=== PATIENT | female | born 1955 | race Caucasian/White ===

== ENCOUNTER 2017-07-30 07:30 | Inpatient (IN) | payer OTHER ==
--- NOTE | 2017-07-31 18:56 | HP ---
HISTORY AND PHYSICAL: DATE OF ADMISSION: 08/13/17 She is entering [facility] for a left total knee replacement. CHIEF COMPLAINT: Left knee pain. 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 Now, because she is no longer responsive to nonoperative care, her desire is to proceed with the knee replacement and we have recommended it. Her walking is limited to one quarter mile. She does stairs one at a time for the past year using the railing and the left knee locks occasionally. The knee history started as a young person and there is no specific injury. PAST MEDICAL HISTORY: She has a past history of DVT. No history of heart attack or chest pain. No cancers. No chronic bronchitis or shortness of breath. PAST SURGICAL HISTORY: , she had a urinary tract infection once during her , and she has a hip replacement. CURRENT MEDICATIONS: 1. She keeps an EpiPen for bee stings. 2. Celebrex 100 mg once or twice a day. 3. Valsartan 80 mg each day. 4. Aspirin 81 mg each day. 5. Hydrochlorothiazide 25 mg one tablet each day. 6. Simvastatin 10 mg each day. 7. She takes vitamin B complex, vitamin D3, and vitamin C. ALLERGIES: To CODEINE, DAYPRO, SHRIMP, TUNA, and BEE STINGS. REVIEW OF SYSTEMS: She has sleep apnea, hypercholesterolemia, and hypertension. PHYSICAL EXAMINATION GENERAL: Currently on examination, not acutely distressed. VITAL SIGNS: Height 64 inches, weight 199 pounds, blood pressure 124/78, respirations 16, temperature 97.1. LUNGS: Clear bilaterally. CARDIAC: The heart is regular. S1, S2 normal. No murmurs or gallops. ABDOMEN: Round, soft, nontender. I do not appreciate organomegaly. EXTREMITIES: The walk and gait shows a limp on the left with left knee valgus. The left knee has an effusion with extension to 0, flexion 95 degrees. There is some lateral tenderness. Medial collateral ligament opens slightly and has a firm endpoint. The LCL is stable. Flex and posterior drawer normal. The thigh and calf are soft. The left dorsalis pedis pulse is 2+. Good foot color. She is able to rise on her toes and her heels and do a partial squat. NEUROLOGIC: Cranial nerves are grossly intact. DIAGNOSTIC STUDIES: The knee radiographs shows severe arthritis of the left knee and the lateral compartment with valgus malalignment. IMPRESSION: Severe arthritis of the left knee. PLAN: Left total knee replacement. Risks and complications of surgical repair have been discussed with her. Postoperatively, she will need coverage for her DVT history. [id number]/[facility] #: [id number] HUANG
--- NOTE | 2017-09-03 02:17 | HP ---
HISTORY AND PHYSICAL: DATE OF ADMISSION: 09/10/17 Entering [facility] 09/10/17 for a left total knee replacement. CHIEF COMPLAINT: Left knee pain, deformity. HISTORY OF PRESENT ILLNESS: The patient has had left knee pain for many years with valgus malalignment, now she is no longer responsive for nonoperative care. A left total knee replacement has been recommended. Her walking is limited to one-quarter mile. She does stairs one at a time for the past year using the railing and the left knee locks occasionally. Her left knee arthritis history began as a young person and there was no specific injury. She was scheduled for left total knee replacement in July. She was ill at that time and she is now recovered from a GI illness and is feeling fine. PAST MEDICAL HISTORY: Positive for DVT. No history of heart attack or chest pain. No cancers, no bronchitis or shortness of breath. She does have sleep apnea, hypercholesterolemia, and hypertension. PAST SURGICAL HISTORY: 1. . 2. Urinary tract infection. 3. She had a hip replacement that was done in April of 2004. CURRENT MEDICATIONS: 1. She keeps an EpiPen for bee stings. 2. Celebrex 100 mg, she takes this only rarely. 3. Valsartan 80 mg p.o. each day. 4. Aspirin 81 mg each day. 5. Hydrochlorothiazide 25 mg each day. 6. Simvastatin 10 mg each day. 7. Vitamin B complex, vitamin D3 and vitamin C. ALLERGIES: CODEINE, DAYPRO, SHRIMP, TUNA, and BEE STINGS. PHYSICAL EXAMINATION GENERAL: Well nourished, well developed, not acutely distressed. She has some limp on the left. Left knee has valgus. HEENT: Height 63 inches, weight 199, blood pressure 130/82, the temp is 97.6. Her cranial nerves were grossly intact. The head is NC/AT. LUNGS: Clear bilaterally. HEART: Regular. S1, S2 normal. No murmurs or gallops. ABDOMEN: Round, soft, nontender. I do not appreciate organomegaly. EXTREMITIES: The left knee has extension 0, flexion 108. There is an effusion. The valgus is 15 degrees and the MCL has a firm endpoint and seems to have stability. LCL is stable. Thigh and calf are soft. The dorsalis pedis pulse is 2+ on the left. IMPRESSION: The medical problems are outlined above. Left knee severe arthritis with valgus malalignment. PLAN/RECOMMENDATIONS: Left total knee replacement. Because of the DVT history , we are planning Lovenox 40 mg subcu each day to start postoperative day 1. Risks and complications of surgery and Lovenox were discussed with her today including bleeding complications and her questions were answered. We will proceed with this on 09/10/17. [id number]/[facility] #: [id number] HUANG
[2017-09-09] MEDS ORDERED: Buffered Lidocaine 0.9% SYRIN* 5 ML/SYR SYRINGE INTRADERM ONE (09:41)
[2017-09-10] MEDS ORDERED: Naloxone* 0.4 MG/ML 1 ML VIAL IV PRN (05:36)
[2017-09-10] MEDS ORDERED: DiMENhydriNATE IV* 50 MG/ML VIAL IV PUSH PRN (05:36)
[2017-09-10] MEDS ORDERED: PROCHLORPERAZINE INJ 5 MG/ML 2 ML VIAL IV PRN (05:36)
[2017-09-10] MEDS ORDERED: Morphine INJ* 2 MG/ML 1 ML CARPUJECT IV PRN (05:36)
[2017-09-10] MEDS ORDERED: fentaNYL* 50 MCG/ML 2 ML VIAL (100 MCG VIAL) IV PRN (05:36)
[2017-09-10] MEDS ORDERED: Famotidine IV* 10 MG/ML 2 ML (20 mg) IV ONE (06:00)
[2017-09-10] MEDS ORDERED: Scopolamine 1.5 mg* PATCH TRANSDERM ONE (06:00)
--- OUTSIDE RECORDS SUMMARY | 2017-09-10 06:01 | XMS REPORT ---
:1955 External Reference #:[id number] Author Organization [employer] Address [address] [address] Phone [phone] Care Team Providers Name Role Phone Maura Bernal MD Primary Care Physician Unavailable Payers Type Date Identification Numbers Payment Provider Subscriber Commercial Effective: Policy Number: [id number] A[employer] Consuelo Joe 2012 Group Number: [id number] [id number] PayID: [id number] [place] [address] Medigap Part B Effective: Policy Number: Aetna Insurance Consuelo Joe 2012 [id number] Expires: 2012 Group Number: [id number] [address] PayID: [id number] [place] [address] Medigap Part B Expires: 2012 Policy Number: Cigna [facility] I Reese Joe [id number] PayID: [id number] [address] [place] [address] Medigap Part B Expires: 2012 Policy Number: [employer] Consuelo Joe [id number] Group Number: [id number] [address] PayID: [id number] [place] [address] Problems Date Description Provider Status Onset: 02/23/2011 Benign essential hypertension Tyrell Mccollum M.D. Active Onset: 02/23/2011 Pure hypercholesterolemia Tyrell Mccollum M.D. Active Onset: 05/20/2012 Sleep apnea Tyrell Mccollum M.D. Active Onset: 02/23/2011 Osteoarthritis Tyrell Mccollum M.D. Active Social History Type Date Description Comments Occupation [employer] Cigarette Use Never Smoked Cigarettes ETOH Use 12/04/2012 Occasionally consumes alcohol Smoking Patient has never smoked Exercise Type/Frequency Exercises regularly Allergies, Adverse Reactions, Alerts Date Description Reaction Status Severity Comments 03/25/2007 Codeine active 03/25/2007 Daypro active 03/25/2007 shrimp active Hives 05/20/2012 TUNA mouth itching active 08/01/2016 Bee Sting active Severe Medications Medication Date Status Form Strength Qnty SIG Indications Ordering Provider Lovenox 09/02 Active Solution 40mg/0.4M .400m 40 mg M17.12 Dir L emily Coker each M.D. day for 26 days Epipen 2-Parker 08/01 Active Solution 0.3mg/0.3 2unit use as Auto-Inject ML s directed Varn, N.P. Celebrex 07/17 Active Capsules 100mg 60cap 1 tab by M19.012 s mouth F twice a Margaret, day as MD needed Valsartan 01/07 Active Tablets 80mg 90tab take 1 s tablet Varn, daily N.P. Aspir-[address] 81mg 1 by mouth Unknown /0000 every day Hydrochlorothiazi Active Tablets 25mg 90tab take one Tyrell Ramirez s tablet by jose martin Mccollum.Waylon every day B Complex Active 100mg. Vitamin D3 Active 2000Iu Vitamin C Active Capsules 500mg 1 by mouth Unknown /0000 every day Simvastatin Active Tablets 10mg 30tab take 1 s tablet by Varn mouth at N.P. bedtime Fish Oil Active Capsules 1000mg 1 by mouth Unknown /0000 every day Zostavax 08/01 Hx Solution 22033Kza/ 1unit 1 dose s/c Z00.01 Rec 0.65ML s Varn, - N.P. 09/01 Pantoprazole 05/[address] 40mg 30tab Take 1 530.81 Augie Sodium /2014 s Tablet By BANDAR Woodruff - Mouth 09/13 Every Day Amoxicillin 09/17 Hx Capsules 500mg 20cap 1 cap Antonette s twice a Della, - day for 10 N.P. 05 Fluticasone 09/15 Hx Suspension 50mcg/Act 1bott 2 spray in 465.9 Antonette le each Della, - nostril in N.P. 05 in morning Xarelto 04/28 Hx Tablets 20mg 90tab Take 1 453.40 Tyrell E. s Tablet By Veda, - Mouth One M.D. 12/04 Time Daily With Evening Meal Xarelto 04/06 Hx Tablets 15mg 42tab 1 po bid 453.40 Tyrell E. s for 3 Veda, - weeks M.D. 04/28 Amoxicillin 05/20 Hx Capsules 500mg 30cap 1 tid for 465.9 Tyrell E. s 10 days Iraida Mccollum.Waylon 12/04 Tessalon Perles 05/20 Hx Capsules 100mg 30cap 1-2 po tid 465.9 Tyrell E. s prn Veda - M.Waylon 04/28 Triamcinolone 12/12 Hx Creme 0.1% 1unit apply to 692.6 Amalia s christine Mesa, - affected M.D. 05/20 areas Twice a day X 10 days Hydrocortisone 02/09 Hx Ointment 2.5% 20gm bid 692.70 Manolo sparingly Waylon Mahajan, - to the M.D.,FACP 11/08 affected area Terbinafine HCL 02/09 Hx Cream 1% 15gm apply 110.2 Manolo sparingly Waylon Mahajan, - to skin M.D.,FACP 11/08 bid x weeks Diovan 09/29 Hx Tablets 80mg 90tab Take 1 Tyrell E. s Tablet Veda, - Daily M.D. 09/13 Simvastatin 10/04 Hx Tablets 20mg 90tab take one Tyrell E. s tablet by Veda, - mouth at M.D. 03/24 bedtime Amoxicillin 12/31 Hx Tablets 500mg 30tab 1 po tid Tyrell E. s for 10 Veda, - days Demi 05/06 Zocor 12/31 Hx Tablets 20mg 90tab 1 po qhs Tyrell E. s Iraida Mccollum M.D. 10/04 Effexor 10/21 Hx Tablets 37.5mg 1 PO qod Tyrell E. Iraida Mccollum M.D. 12/31 Amoxicillin 07/02 Hx Tablets 500mg 21tab 1 po tid Tyrell E. s for 10 Veda, - monserrat Simms 10/21 Tessalon Perles 07/02 Hx Capsules 100mg 30cap 1-2 po tid Tyrell E. s prn Iraida Mccollum M.D. 10/21 Effexor XR 03/25 Hx Caps ER 37.5mg 30cap 1 po qd Tyrell EMara 24HR Iraida Ferrell M.D. 05/21 Lipitor 03/25 Hx Tablets 10mg 30tab 1tab po hs Tyrell E. Iraida Ferrell M.D. 05/21 Diovan Hx Tablets 80mg 4tabs 1 po qd Tyrell E. / Iraida Mccollum M.D. 09/29 Lipitor Hx Tablets 10mg 90tab 1 po qhs Tyrell E. / Iraida Ferrell M.D. 12/31 Effexor XR Hx Caps ER 37.5mg 90cap 1 po qd Tyrell E. / 24HR Iraida Ferrell M.D. 10/21 Fish Oil Triple Hx Capsules 900mg 1 po qd Unknown Strength /0000 - 05/20 Aspirin Low Hx Chewtabs 81mg 1 po qd Unknown Strength /0000 - 05/20 Caltrate Gummy Hx Chewtabs 250-400mg 2 daily Unknown Bites /0000 -Unit - 05/20 Warfarin Sodium Hx Tablets 5mg 90tab take as Unknown /0000 s directed - 04/28 Lovenox Hx Solution 100mg/ml 8unit 1 Unknown /0000 s subcutaneo - usly q12h 04/28 directed Caltrate 600+D Hx Chewtabs 600-400mg 1 po bid Unknown /0000 -Unit - 10/22 Stephanie Hx Capsules 500mg Unknown /0000 - 08/29 Vitamin D3 Hx Capsules 1000Unit 90cap 1 po qd Unknown /0000 s - 05/19 Viactiv Hx Chewtabs 500-500-4 60uni 1 by mouth Unknown /0000 0mg-Unt-m ts twice a - cg day 08/29 Valacyclovir HCL Hx 1 po tid Unknown /0000 - 01/28 Prednisone Hx Tablets 20mg 20tab take 3 po Unknown / s qam - 10/24 Neomycin/Polymyxi Hx Solution [id number] 1vial 2 drops Unknown n/Hydrocortisone /0000 -1 left ear - 4x per day 11/27 7-10 Fish Oil Hx Capsules 1000mg 1 by mouth Unknown Burp-Less /0000 every day - 08/29 Caltrate +D Hx Unknown /0000 - 03/24 Fish Oil Hx Capsules Unknown Burp-Less /0000 - 02/28 Immunizations CPT Code Status Date Vaccine Lot # [id number] Given 07/21/2017 Influenza Virus Vaccine, Quadrivalent, Split, Preservative Free [id number] Given 05/19/2014 Flu Vaccine Split Virus Preservative Free For [id number] Indiv 3Yr Older 32975 Given 04/28/2013 Flu Vaccine Split Virus Preservative Free For [id number] Indiv 3Yr Older [id number] Given 05/20/2012 Fluvirin Im 3Yrs And Older [id number] 72617 Given 01/17/2009 Tdap - Tetanus/Diptheria/Acellular Pertussis [id number] Given 12/13/1998 Td (History By Patient) Vital Signs Date Vital Result Comment 09/02/2017 Height 63.5 inches 5'3.50" Weight 199.00 lb BP Systolic 130 mmHg BP Diastolic 82 mmHg Respiratory Rate 18 /min Body Temperature 97.6 F Pain Level 0 BMI (Body Mass Index) 34.7 kg/m2 07/31/2017 Height 63.5 inches 5'3.50" Weight 199.00 lb BP Systolic 124 mmHg BP Diastolic 78 mmHg Respiratory Rate 16 /min Body Temperature 97.1 F Pain Level 0 BMI (Body Mass Index) 34.7 kg/m2 07/29/2017 Weight 199.25 lb Heart Rate 79 /min BP Systolic Sitting 128 mmHg BP Diastolic Sitting 78 mmHg Body Temperature 97.5 F O2 % BldC Oximetry 97 % 03/25/2017 Height 63.5 inches 5'3.50" Weight 199.00 lb BP Systolic 128 mmHg BP Diastolic 72 mmHg Respiratory Rate 18 /min Body Temperature 97.8 F Pain Level 0 BMI (Body Mass Index) 34.7 kg/m2 02/28/2017 Weight 203.50 lb Heart Rate 77 /min BP Systolic 112 mmHg BP Diastolic 70 mmHg Body Temperature 97.9 F O2 % BldC Oximetry 96 % 09/11/2016 Height 63.5 inches 5'3.50" Weight 207.00 lb Heart Rate 76 /min BP Systolic 139 mmHg BP Diastolic 81 mmHg Respiratory Rate 16 /min Pain Level 3 BMI (Body Mass Index) 36.1 kg/m2 08/01/2016 Height 63 inches 5'3" Weight 211.00 lb Heart Rate 82 /min BP Systolic Sitting 124 mmHg BP Diastolic Sitting 82 mmHg Body Temperature 97.4 F O2 % BldC Oximetry 96 % BMI (Body Mass Index) 37.4 kg/m2 07/17/2016 Height 63.5 inches 5'3.50" Weight 207.00 lb Heart Rate 80 /min BP Systolic 120 mmHg BP Diastolic 80 mmHg Pain Level 0 8 BMI (Body Mass Index) 36.1 kg/m2 02/29/2016 Height 63.5 inches 5'3.50" Weight 212.00 lb Heart Rate 86 /min BP Systolic 160 mmHg BP Diastolic 90 mmHg Body Temperature 98.6 F O2 % BldC Oximetry 97 % BMI (Body Mass Index) 37.0 kg/m2 08/31/2015 Height 63.5 inches 5'3.50" Weight 199.00 lb Heart Rate 81 /min BP Systolic 131 mmHg BP Diastolic 71 mmHg BMI (Body Mass Index) 34.7 kg/m2 11/24/2014 Height 63.5 inches 5'3.50" Heart Rate 75 /min BP Systolic Sitting 122 mmHg BP Diastolic Sitting 72 mmHg Pain Level 1 O2 % BldC Oximetry 98 % 09/13/2014 Height 63.5 inches 5'3.50" Heart Rate 78 /min BP Systolic Sitting 122 mmHg BP Diastolic Sitting 68 mmHg 05/19/2014 Weight 207.00 lb per pt Heart Rate 83 /min BP Systolic Sitting 133 mmHg BP Diastolic Sitting 78 mmHg Body Temperature 97.2 F O2 % BldC Oximetry 95 % 10/22/2013 Weight 207.00 lb Heart Rate 82 /min BP Systolic Sitting 116 mmHg BP Diastolic Sitting 80 mmHg Body Temperature 97.4 F 09/15/2013 Weight 209.00 lb Heart Rate 90 /min BP Systolic Sitting 134 mmHg BP Diastolic Sitting 70 mmHg Body Temperature 97.7 F 08/19/2013 Height 63.5 inches 5'3.50" Weight 205.00 lb Heart Rate 90 /min BP Systolic Sitting 130 mmHg BP Diastolic Sitting 82 mmHg BMI (Body Mass Index) 35.7 kg/m2 04/28/2013 Height 63.5 inches 5'3.50" Weight 203.50 lb Heart Rate 92 /min BP Systolic Sitting 126 mmHg BP Diastolic Sitting 74 mmHg BMI (Body Mass Index) 35.5 kg/m2 04/06/2013 Weight 205.00 lb Heart Rate 94 /min BP Systolic Sitting 130 mmHg BP Diastolic Sitting 74 mmHg 12/04/2012 Weight 200.00 lb Heart Rate 76 /min BP Systolic Sitting 134 mmHg BP Diastolic Sitting 76 mmHg 05/20/2012 Height 63.5 inches 5'3.50" Weight 203.00 lb Heart Rate 78 /min BP Systolic Sitting 118 mmHg BP Diastolic Sitting 76 mmHg Body Temperature 97.8 F BMI (Body Mass Index) 35.4 kg/m2 12/13/2011 Height 63.5 inches 5'3.50" Weight 204.00 lb Heart Rate 76 /min BP Systolic Sitting 120 mmHg BP Diastolic Sitting 80 mmHg BMI (Body Mass Index) 35.6 kg/m2 11/09/2011 Height 63.5 inches 5'3.50" Weight 201.75 lb Heart Rate 88 /min BP Systolic Sitting 120 mmHg BP Diastolic Sitting 88 mmHg BMI (Body Mass Index) 35.2 kg/m2 09/24/2011 Height 64 inches 5'4" Heart Rate 88 /min BP Systolic Sitting 150 mmHg BP Diastolic Sitting 94 mmHg 02/23/2011 Height 64 inches 5'4" Weight 195.00 lb Heart Rate 72 /min BP Systolic Sitting 122 mmHg L BP Diastolic Sitting 84 mmHg L BMI (Body Mass Index) 33.5 kg/m2 02/09/2011 Weight 197.00 lb Heart Rate 66 /min BP Systolic Sitting 110 mmHg BP Diastolic Sitting 76 mmHg 10/03/2009 Weight 209.00 lb Heart Rate 80 /min BP Systolic 130 mmHg BP Diastolic 78 mmHg 01/17/2009 Heart Rate 76 /min BP Systolic Sitting 120 mmHg BP Diastolic Sitting 80 mmHg 10/04/2008 Height 64 inches 5'4" Heart Rate 84 /min BP Systolic Sitting 122 mmHg BP Diastolic Sitting 86 mmHg 05/06/2008 Height 64 inches 5'4" Weight 202.00 lb Heart Rate 76 /min BP Systolic Sitting 150 mmHg BP Diastolic Sitting 96 mmHg BMI (Body Mass Index) 34.7 kg/m2 01/01/2008 Height 64 inches 5'4" Heart Rate 76 /min BP Systolic Sitting 110 mmHg BP Diastolic Sitting 72 mmHg 10/22/2007 Height 64 inches 5'4" Weight 202.00 lb Heart Rate 80 /min BP Systolic Sitting 120 mmHg BP Diastolic Sitting 70 mmHg BMI (Body Mass Index) 34.7 kg/m2 07/02/2007 Height 64 inches 5'4" BP Systolic Sitting 120 mmHg BP Diastolic Sitting 80 mmHg Body Temperature 99.3 F 03/25/2007 Height 64 inches 5'4" Weight 199.00 lb Heart Rate 68 /min BP Systolic Sitting 120 mmHg BP Diastolic Sitting 80 mmHg BMI (Body Mass Index) 34.2 kg/m2 Results Test Date Test Result H/L Range Note Type & Screen 07/31/2017 Patient Blood Type B Positive 1 Antibody Screen NEGATIVE 1 CBC Auto Diff 07/20/2017 White Blood Count 6.3 10^3/uL 3.5-10.8 Red Blood Count 4.79 10^6/uL 4.0-5.4 Hemoglobin 14.5 g/dL 12.0-16.0 Hematocrit 43 % 35-47 Mean Corpuscular Volume 90 fL 80-97 Mean Corpuscular Hemoglobin 30 pg 27-31 Mean Corpuscular HGB Conc 34 g/dL 31-36 Red Cell Distribution Width 14 % 10.5-15 Platelet Count 284 10^3/uL 150-450 Mean Platelet Volume 9 um3 7.4-10.4 Abs Neutrophils 3.8 10^3/uL 1.5-7.7 Abs Lymphocytes 1.8 10^3/uL 1.0-4.8 Abs Monocytes 0.5 10^3/uL 0-0.8 Abs Eosinophils 0.1 10^3/uL 0-0.6 Abs Basophils 0.1 10^3/uL 0-0.2 Abs Nucleated RBC 0 10^3/uL Granulocyte % 59.7 % 38-83 Lymphocyte % 28.8 % 25-47 Monocyte % 8.5 % 1-9 Eosinophil % 2.1 % 0-6 Basophil % 0.9 % 0-2 Nucleated Red Blood Cells % 0.1 Comp Metabolic Panel 07/20/2017 Sodium 140 mmol/L 133-145 Potassium 3.9 mmol/L 3.5-5.0 Chloride 101 mmol/L 101-111 Co2 Carbon Dioxide 32 mmol/L 22-32 Anion Gap 7 mmol/L 2-11 Glucose 93 mg/dL 70-100 Blood Urea Nitrogen 14 mg/dL 6-24 Creatinine 0.64 mg/dL 0.51-0.95 BUN/Creatinine Ratio 21.9 High 8-20 Calcium 9.8 mg/dL 8.6-10.3 Total Protein 7.3 g/dL 6.4-8.9 Albumin 4.2 g/dL 3.2-5.2 Globulin 3.1 g/dL 2-4 Albumin/Globulin Ratio 1.4 1-3 Total Bilirubin 0.80 mg/dL 0.2-1.0 Alkaline Phosphatase 73 U/L 34-104 Alt 20 U/L 7-52 Ast 18 U/L 13-39 Egfr Non- 94.0 >60 Egfr 120.9 >60 2 Inr/Protime 07/20/2017 Inr 0.94 0.77-1.02 Laboratory test finding 07/20/2017 Partial Thrombo Time 29.1 seconds 26.0 -36.3 3 PTT Urinalysis Profile 07/20/2017 Urine Color Yellow Urine Appearance Cloudy Urine Specific Energy 1.019 1.010-1.030 Urine pH 6.0 5-9 Urine Urobilinogen Negative Negative Urine Ketones Negative Negative Urine Protein Negative Negative Urine Leukocytes 1+ Negative Urine Blood Negative Negative * * Negative 4 Urine Nitrite Negative Negative Urine Bilirubin Negative Negative Urine Glucose Negative Negative Urine White Blood Cell Trace(0-5/hpf) Absent Urine Red Blood Cell Absent Absent Urine Bacteria 1+ Absent Urine Squamous Epithelial Cell Present Absent Urine Culture And Sensitivities 07/20/2017 Urine Culture SEE RESULT BELOW 5 Lipid Profile (Trig/Chol/HDL) 04/08/2017 Triglycerides 83 mg/dL 6 Cholesterol 136 mg/dL 7 HDL Cholesterol 50.6 mg/dL 8 LDL Cholesterol 69 mg/dL 9 Laboratory test 12/04/2016 Surgical Interface Order SEE RESULT BELOW 10 , 11 finding Lipid Profile 11/26/2016 Triglycerides 98 mg/dL 12 (Trig/Chol/HDL) Cholesterol 143 mg/dL 13 HDL Cholesterol 51.2 mg/dL 14 LDL Cholesterol 72 mg/dL 15 Laboratory test finding 11/26/2016 Vitamin D Total 25(Oh) 31.0 ng/mL 30- 50 Comp Metabolic Panel 05/16/2016 Sodium 139 mmol/L 133-145 Potassium 4.0 mmol/L 3.5-5.0 Chloride 102 mmol/L 101-111 Co2 Carbon Dioxide 31 mmol/L 22-32 Anion Gap 6 mmol/L 2-11 Glucose 88 mg/dL 70-100 Blood Urea Nitrogen 14 mg/dL 6-24 Creatinine 0.71 mg/dL 0.51-0.95 BUN/Creatinine Ratio 19.7 8-20 Calcium 9.7 mg/dL 8.6-10.3 Total Protein 7.4 g/dL 6.4-8.9 Albumin 4.1 g/dL 3.2-5.2 Globulin 3.3 g/dL 2-4 Albumin/Globulin Ratio 1.2 1-3 Total Bilirubin 0.80 mg/dL 0.2-1.0 Alkaline Phosphatase 71 U/L 34-104 Alt 29 U/L 7-52 Ast 24 U/L 13-39 Egfr Non- 83.7 >60 Egfr 107.6 >60 16 Lipid Profile (Trig/Chol/HDL) 05/16/2016 Triglycerides 89 mg/dL 17 Cholesterol 116 mg/dL 18 HDL Cholesterol 46.3 mg/dL 19 LDL Cholesterol 52 mg/dL 20 Laboratory test finding 05/16/2016 TSH (Thyroid Stim 1.26 mcIU/mL 0.34- 5.60 21 Horm) CBC Auto Diff 05/16/2016 White Blood Count 6.9 10^3/uL 3.5-10.8 Red Blood Count 4.91 10^6/uL 4.0-5.4 Hemoglobin 14.8 g/dL 12.0-16.0 Hematocrit 44 % 35-47 Mean Corpuscular Volume 89 fL 80-97 Mean Corpuscular Hemoglobin 30 pg 27-31 Mean Corpuscular HGB Conc 34 g/dL 31-36 Red Cell Distribution Width 13 % 10.5-15 Platelet Count 276 10^3/uL 150-450 Mean Platelet Volume 9 um3 7.4-10.4 Abs Neutrophils 3.9 10^3/uL 1.5-7.7 Abs Lymphocytes 2.2 10^3/uL 1.0-4.8 Abs Monocytes 0.6 10^3/uL 0-0.8 Abs Eosinophils 0.1 10^3/uL 0-0.6 Abs Basophils 0 10^3/uL 0-0.2 Abs Nucleated RBC 0.01 10^3/uL Granulocyte % 56.6 % 38-83 Lymphocyte % 32.2 % 25-47 Monocyte % 8.4 % 1-9 Eosinophil % 2.1 % 0-6 Basophil % 0.7 % 0-2 Nucleated Red Blood Cells % 0.1 Laboratory test 12/11/2013 D Dimer Quantitative < 200 ng/mL Less Than 230 22 finding Comp Metabolic Panel 10/19/2013 Sodium 137 mmol/L 133-145 Potassium 3.2 mmol/L Low 3.7-5.6 Chloride 97 mmol/L Low 101-111 Co2 Carbon Dioxide 32 mmol/L 22-32 Anion Gap 8 mmol/L 2-11 Glucose 102 mg/dL High 70-100 Blood Urea Nitrogen 9 mg/dL 6-24 Creatinine 0.69 mg/dL 0.51-0.95 BUN/Creatinine Ratio 13.0 8-20 Calcium 10.1 mg/dL 8.6-10.3 Total Protein 8.2 g/dL 6.4-8.9 Albumin 4.8 g/dL 3.2-5.2 Globulin 3.4 g/dL 2-4 Albumin/Globulin Ratio 1.4 1-3 Total Bilirubin 1.30 mg/dL High 0.2-1.0 Alkaline Phosphatase 79 U/L 34-104 Alt 23 U/L 7-52 Ast 22 U/L 13-39 Egfr Non- 87.4 >60 Egfr 112.4 >60 23 Laboratory test finding 10/19/2013 TSH (Thyroid Stimulating 2.18 IU/mL 0.34-5.60 Horm) C Reactive Protein 5.19 mg/L High < 5.00 24 CBC Auto Diff 10/19/2013 White Blood Count 8.7 10^3/uL 4.8-10.8 Red Blood Count 5.03 10^6/uL 4.0-5.4 Hemoglobin 15.1 g/dL 12.0-16.0 Hematocrit 45 % 35-47 Mean Corpuscular Volume 89 fL 80-97 Mean Corpuscular Hemoglobin 30 pg 27-31 Mean Corpuscular HGB Conc 34 g/dL 31-36 Red Cell Distribution Width 13 % 10.5-15 Platelet Count 290 10^3/uL 150-450 Mean Platelet Volume 9 um3 7.4-10.4 Abs Neutrophils 6.4 10^3/uL 1.5-7.7 Abs Lymphocytes 1.8 10^3/uL 1.0-4.8 Abs Monocytes 0.5 10^3/uL 0-0.8 Abs Eosinophils 0 10^3/uL 0-0.6 Abs Basophils 0 10^3/uL 0-0.2 Abs Nucleated RBC 0 10^3/uL Granulocyte % 73.2 % 38-83 Lymphocyte % 20.4 % Low 25-47 Monocyte % 5.4 % 1-9 Eosinophil % 0.4 % 0-6 Basophil % 0.6 % 0-2 Nucleated Red Blood Cells % 0 Inr/Protime 10/19/2013 Inr 1.21 High 0.85-1.06 Laboratory test finding 10/19/2013 Activated Partial 32.9 seconds 24.0- 36.1 Thrombo Time Lyme Disease Serology Negative Negative 25 Lipid Profile (Trig/Chol/HDL) 07/06/2013 Triglycerides 57 mg/dL 40-200 Cholesterol 134 mg/dL Less than 200 HDL Cholesterol 51 mg/dL 40-60 26 Cholesterol/HDL Ratio 2.6 Average 1-4.44 LDL Cholesterol 71.6 Less Than 100 27 Comp Metabolic Panel 07/06/2013 Sodium 137 mmol/L 133-145 Potassium 3.5 mmol/L 3.5-5.0 Chloride 101 mmol/L 101-111 Co2 Carbon Dioxide 29.0 mmol/L 22-32 Anion Gap 7.0 mmol/L 2-11 Glucose 97 mg/dL 70-100 Blood Urea Nitrogen 14 mg/dL 6-24 Creatinine 0.70 mg/dL 0.50-1.40 BUN/Creatinine Ratio 20.0 8-20 Calcium 9.2 mg/dL 8.1-9.9 Total Protein 7.0 g/dL 6.2-8.1 Albumin 3.9 g/dL 3.6-5.4 Globulin 3.1 g/dL 2-4 Albumin/Globulin Ratio 1.3 1-3 Total Bilirubin 0.7 mg/dL 0.4-1.5 Alkaline Phosphatase 66 U/L 30-110 Alt 22 U/L 14-54 Ast 18 U/L 12-42 Egfr Non- 85.9 >60 Egfr 110.5 >60 28 Laboratory test finding 04/06/2013 Inr 0.90 0.87-0.97 Lipid Profile (Trig/Chol/HDL) 05/30/2012 Triglycerides 64 mg/dL 40-200 Cholesterol 145 mg/dL Less than 200 HDL Cholesterol 44 mg/dL 40-60 29 Cholesterol/HDL Ratio 3.3 Average 1-4.44 LDL Cholesterol 88.2 mg/dL Less Than 100 30 Comp Metabolic Panel 05/30/2012 Sodium 142 mmol/L 133-145 Potassium 3.7 mmol/L 3.5-5.0 Chloride 105 mmol/L 101-111 Co2 Carbon Dioxide 29.0 mmol/L 22-32 Anion Gap 8.0 mmol/L 2-11 Glucose 101 mg/dL High 70-100 Blood Urea Nitrogen 13 mg/dL 6-24 Creatinine 0.70 mg/dL 0.50-1.40 BUN/Creatinine Ratio 18.6 8-20 Calcium 9.2 mg/dL 8.1-9.9 Total Protein 6.5 g/dL 6.2-8.1 Albumin 3.9 g/dL 3.6-5.4 Globulin 2.6 g/dL 2-4 Albumin/Globulin Ratio 1.5 1-3 Total Bilirubin 0.8 mg/dL 0.4-1.5 Alkaline Phosphatase 72 U/L 30-110 Alt 25 U/L 14-54 Ast 22 U/L 12-42 Egfr Non- 86.2 >60 Egfr 110.9 >60 31 CBC Auto Diff 05/30/2012 White Blood Count 6.0 10^3/uL 4.8-10.8 Red Blood Count 4.51 10^6/uL 4.0-5.4 Hemoglobin 13.9 g/dL 12.0-16.0 Hematocrit 41 % 35-47 Mean Corpuscular Volume 91 fL 80-97 Mean Corpuscular Hemoglobin 31 pg 27-31 Mean Corpuscular HGB Conc 34 g/dL 31-36 Red Cell Distribution Width 13 % 10.5-15 Platelet Count 290 10^3/uL 150-450 Mean Platelet Volume 9 um3 7.4-10.4 Abs Neutrophils 3.6 10^3/uL 1.5-7.7 Abs Lymphocytes 1.8 10^3/uL 1.0-4.8 Abs Monocytes 0.4 10^3/uL 0-0.8 Abs Eosinophils 0.2 10^3/uL 0-0.6 Abs Basophils 0.1 10^3/uL 0-0.2 Abs Nucleated RBC 0 10^3/uL Granulocyte % 60.2 % 38-83 Lymphocyte % 29.2 % 25-47 Monocyte % 6.3 % 1-9 Eosinophil % 3.1 % 0-6 Basophil % 1.2 % 0-2 Nucleated Red Blood Cells % 0 Comp Metabolic Panel 02/16/2011 Sodium 140 mmol/L 135-145 Potassium 3.8 mmol/L 3.5-5.0 Chloride 104 mmol/L 101-111 Co2 (Carbon Dioxide) 30.0 mmol/L 22-32 Anion Gap 6.0 mmol/L 2-11 32 Glucose 100 mg/dL 70-100 BUN 9 mg/dL 6-24 Creatinine 0.7 mg/dL 0.50-1.40 One Over Creatinine 1.42 BUN/Creatinine Ratio 12.9 8-20 Calcium 9.3 mg/dL 8.1-9.9 Total Protein 6.7 GM/DL 6.2-8.1 Albumin 3.8 GM/DL 3.6-5.4 Globulin 2.9 GM/DL 2-4 Albumin/Globulin Ratio 1.3 1-3 Bilirubin Total 0.9 mg/dL 0.4-1.5 33 Alkaline Phosphatase 64 U/L 30-110 Alt (SGPT) 27 U/L 14-54 Ast (Sgot) 24 U/L 12-42 eGFR Non- 86.9 > 60 eGFR 111.7 > 60 34 Lipid Profile (Trig/Chol/HDL) 02/16/2011 Triglyceride 77 mg/dL 40-200 Cholesterol 137 mg/dL Less Than 200 35 High Density Lipoprotein 45 mg/dL 40-60 36 Cholesterol/HDL Ratio 3.04 AVERAGE 1-4.44 Low Density Lipoprotein 77 mg/dL Less Than 100 37 CBC Auto Diff 02/16/2011 White Blood Count 6.3 CUMM 4.8-10.8 Red Cell Count 4.55 CUMM 4.2-5.4 Hemoglobin 14.3 g/dL 12.0-16.0 Hematocrit 40 % 35-47 Mean Corpuscular Volume 89 um3 79-97 Mean Corpuscular Hemoglob 32 pg High 27-31 Mean Corpuscular HGB Cone 36 g/dL 32-36 Redcell Distribution WDTH 13 % 10.5-15 Platelet Count 277 CUMM 150-450 Mean Platelet Volume 8.2 um3 7.4-10.4 Gran % 55.1 % 38-83 Lymph % 34.3 % 25-47 Mononuclear % 7.4 % 1-9 Eosinophil % 2.3 % 0-6 Basophil % 0.9 % 0-2 Abs Lymphs 2.1 1.0-4.8 Abs Mononuclear 0.5 0-0.8 Absolute Neutrophil Count 3.4 1.5-7.7 Abs Eosinophils 0.1 0-0.6 Abs Basophils 0.1 0-0.2 DR Mccollum's Lab Panel 02/16/2011 TSH 2.42 MIU/ML 0.34-5.60 CBC With Electronic Diff 02/16/2010 White Blood Count 6.7 CUMM 4.8-10.8 Red Cell Count 4.88 CUMM 4.2-5.4 Hemoglobin 15.4 g/dL 12.0-16.0 Hematocrit 44 % 35-47 Mean Corpuscular Volume 90 um3 79-97 Mean Corpuscular Hemoglob 32 pg High 27-31 Mean Corpuscular HGB Cone 35 g/dL 32-36 Redcell Distribution WDTH 13 % 10.5-15 Platelet Count 335 CUMM 150-450 Mean Platelet Volume 7.4 um3 7.4-10.4 Gran % 55.2 % 38-83 Lymph % 34.5 % 25-47 Mononuclear % 7.0 % 1-9 Eosinophil % 2.2 % 0-6 Basophil % 1.1 % 0-2 Abs Lymphs 2.3 1.0-4.8 Abs Mononuclear 0.5 0-0.8 Absolute Neutrophil Count 3.7 1.5-7.7 Abs Eosinophils 0.1 0-0.6 Abs Basophils 0.1 0-0.2 Comp Metabolic Panel 02/16/2010 Sodium 140 mmol/L 135-145 Potassium 4.0 mmol/L 3.5-5.0 Chloride 102 mmol/L 101-111 Co2 (Carbon Dioxide) 33.0 mmol/L High 22-32 Anion Gap 5.0 mmol/L 2-11 38 Glucose 96 mg/dL 70-100 39 BUN 10 mg/dL 6-24 Creatinine 0.80 mg/dL 0.50-1.40 One Over Creatinine 1.20 BUN/Creatinine Ratio 12.5 8-20 Calcium 9.4 mg/dL 8.1-9.9 40 Total Protein 7.1 GM/DL 6.2-8.1 Albumin 4.2 GM/DL 3.6-5.4 Globulin 2.9 GM/DL 2-4 Albumin/Globulin Ratio 1.4 1-3 Bilirubin Total 0.9 mg/dL 0.4-1.5 41 Alkaline Phosphatase 68 U/L 30-110 eGFR Non- 79.4 > 60 eGFR 96.1 > 60 42 Lipid Profile (Trig/Chol/HDL) 02/16/2010 Triglyceride 104 mg/dL 40-200 Cholesterol 136 mg/dL Less Than 200 43 High Density Lipoprotein 37 mg/dL Low 40-60 44 Cholesterol/HDL Ratio 3.68 AVERAGE 1-4.44 Low Density Lipoprotein 78 mg/dL Less Than 100 45 Laboratory test finding 02/16/2010 TSH 1.37 MIU/ML 0.34-5.60 Alt (SGPT) 29 U/L 14-54 Ast (Sgot) 23 U/L 12-42 CBC With Electronic Diff 01/13/2009 White Blood Count 6.4 CUMM 4.8-10.8 46 Red Cell Count 4.66 CUMM 4.2-5.4 46 Hemoglobin 14.3 g/dL 12.0-16.0 46 Hematocrit 43 % 35-47 46 Mean Corpuscular Volume 91 um3 79-97 46 Mean Corpuscular Hemoglob 31 pg 27-31 46 Mean Corpuscular HGB Cone 34 g/dL 32-36 46 Redcell Distribution WDTH 13 % 10.5-15 46 Platelet Count 310 CUMM 150-450 46 Mean Platelet Volume 8.7 um3 7.4-10.4 46 Gran % 62.4 % 38-83 46 Lymph % 27.8 % 25-47 46 Mononuclear % 7.0 % 1-9 46 Eosinophil % 2.2 % 0-6 46 Basophil % 0.6 % 0-2 46 Abs Lymphs 1.8 1.0-4.8 46 Abs Mononuclear 0.4 0-0.8 46 Absolute Neutrophil Count 4.0 1.5-7.7 46 Abs Eosinophils 0.1 0-0.6 46 Abs Basophils 0 0-0.2 46 Comp Metabolic Panel 01/13/2009 Sodium 137 mmol/L 135-145 46 Potassium 4.1 mmol/L 3.5-5.0 46 Chloride 101 mmol/L 101-111 46 Co2 (Carbon Dioxide) 29.0 mmol/L 22-32 46 Anion Gap 7.0 mmol/L 2-11 46, 47 Glucose 92 mg/dL 70-100 46, 48 BUN 10 mg/dL 6-24 46 Creatinine 0.70 mg/dL 0.50-1.40 46 One Over Creatinine 1.40 46 BUN/Creatinine Ratio 14.3 8-20 46 Calcium 9.4 mg/dL 8.1-9.9 46, 49 Total Protein 6.9 GM/DL 6.2-8.1 46 Albumin 3.8 GM/DL 3.6-5.4 46 Globulin 3.1 GM/DL 2-4 46 Albumin/Globulin Ratio 1.2 1-3 46 Bilirubin Total 1.0 mg/dL 0.4-1.5 46, 50 Alkaline Phosphatase 65 U/L 30-110 46 Alt (SGPT) 19 U/L 14-54 46 Ast (Sgot) 18 U/L 12-42 46 eGFR Non- 93.0 > 60 46 eGFR 112.6 > 60 46, 51 Lipid Profile (Trig/Chol/HDL) 01/13/2009 Triglyceride 86 mg/dL 40-200 46 Cholesterol 170 mg/dL Less Than 200 46, 52 High Density Lipoprotein 40 mg/dL 40-60 46, 53 Low Density Lipoprotein 113 mg/dL High Less Than 100 46, 54 Cholesterol/HDL Ratio 4.25 AVERAGE 1-4.44 46 Laboratory test finding 01/13/2009 TSH 0.79 MIU/ML 0.34-5.60 46 Lipid Profile (Trig/Chol/HDL) 04/27/2008 Triglyceride 87 mg/dL 40-200 55 Cholesterol 160 mg/dL Less Than 200 55, 56 High Density Lipoprotein 42 mg/dL 40-60 55, 57 Cholesterol/HDL Ratio 3.81 AVERAGE 1-4.44 55 Low Density Lipoprotein 101 mg/dL High Less Than 100 55, 58 Laboratory test finding 04/27/2008 Alt (SGPT) 28 U/L 14-54 55 Ast (Sgot) 23 U/L 12- 55 Laboratory test finding 10/22/2007 TSH 0.96 MIU/ML 0.34-5.60 59 Comp Metabolic Panel 10/22/2007 One Over Creatinine 1.11 59 Anion Gap 5.0 mmol/L 2-11 59, 60 Albumin/Globulin Ratio 1.1 1-3 59 Albumin 3.8 GM/DL 3.6-5.4 59 Alkaline Phosphatase 63 U/L 30-110 59 Alt (SGPT) 24 U/L 14-54 59 Ast (Sgot) 24 U/L 12-42 59 BUN 15 mg/dL 6-24 59 Calcium 9.4 mg/dL 8.7-10.2 59 Chloride 102 mmol/L 101-111 59 Co2 (Carbon Dioxide) 32.0 mmol/L 22-32 59 Globulin 3.6 GM/DL 2-4 59 Glucose 93 mg/dL 70-105 59 Potassium 3.3 mmol/L Low 3.5-5.0 59 Sodium 139 mmol/L 135-145 59 Bilirubin Total 1.1 mg/dL 0.4-1.5 59 Total Protein 7.4 GM/DL 6.2-8.1 59 BUN/Creatinine Ratio 16.7 8-20 59 Creatinine 0.9 mg/dL 0.5-1.4 59 Laboratory test finding 10/22/2007 CPK (Creatine Kinase) 132 U/L 0-170 59 Lipid Profile 05/21/2007 Cholesterol/HDL Ratio 3.41 AVERAGE 1-4.44 61 (Trig/Chol/HDL) Cholesterol 140 mg/dL Less Than 200 61, 62 Triglyceride 75 mg/dL 40-200 61 High Density Lipoprotein 41 mg/dL 40-60 61 Low Density Lipoprotein 84 mg/dL Less Than 100 61, 63 Laboratory test finding 05/21/2007 Alt (SGPT) 25 U/L 14-54 61 Ast (Sgot) 22 U/L 12- 61 Laboratory test finding 01/02/2007 TSH 1.05 MIU/ML 0.34-5.60 61 Lipid Profile 01/02/2007 Cholesterol/HDL 4.88 AVERAGE High 1-4.44 61 (Trig/Chol/HDL) Ratio Cholesterol 195 mg/dL Less Than 200 61, 64 Triglyceride 69 mg/dL 40-200 61 High Density Lipoprotein 40 mg/dL 40-60 61 Low Density Lipoprotein 141 mg/dL High Less Than 100 61, 65 Comp Metabolic Panel 01/02/2007 One Over Creatinine 1.25 61 Anion Gap 9.0 mmol/L 2-11 61, 66 Albumin/Globulin Ratio 1.3 1-3 61 Albumin 3.5 GM/DL Low 3.6-5.4 61 Alkaline Phosphatase 59 U/L 30-110 61 Alt (SGPT) 20 U/L 14-54 61 Ast (Sgot) 21 U/L 12-42 61 BUN 8 mg/dL 6-24 61 Calcium 8.4 mg/dL Low 8.7-10.2 61 Chloride 106 mmol/L 101-111 61 Co2 (Carbon Dioxide) 25.0 mmol/L 22-32 61 Globulin 2.8 GM/DL 2-4 61 Glucose 99 mg/dL 70-105 61 Potassium 3.8 mmol/L 3.5-5.0 61 Sodium 140 mmol/L 135-145 61 Bilirubin Total 1.1 mg/dL 0.4-1.5 61 Total Protein 6.3 GM/DL 6.2-8.1 61 BUN/Creatinine Ratio 10.0 8-20 61 Creatinine 0.8 mg/dL 0.5-1.4 61 CBC W/ Electronic Diff 01/02/2007 White Blood Count 6.9 CUMM 4.8-10.8 61 Abs Basophils 0 0-0.2 61 Abs Eosinophils 0.2 0-0.6 61 Absolute Neutrophil Count 4.6 1.5-7.7 61 Abs Lymphs 1.6 1.0-4.8 61 Abs Mononuclear 0.5 0-0.8 61 Basophil % 0.6 % 0-2 61 Hematocrit 41 % 35-47 61 Hemoglobin 14.1 g/dL 12.0-16.0 61 Eosinophil % 2.2 % 0-6 61 Gran % 66.6 % 38-83 61 Lymph % 23.1 % 20-45 61 Mean Corpuscular HGB Cone 34 g/dL 32-36 61 Mean Corpuscular Hemoglob 31 pg 27-31 61 Mean Corpuscular Volume 90 um3 79-97 61 Mean Platelet Volume 9.6 um3 7.4-10.4 61 Mononuclear % 7.5 % 1-9 61 Platelet Count 294 CUMM 150-450 61 Red Cell Count 4.55 CUMM 4.2-5.4 61 Redcell Distribution WDTH 13 % 10.5-15 61 1 UNILATERAL PRIMARY OSTEOARTHRITIS, LEFT KNEE 2 Because ethnic data is not always readily available, this report includes an eGFR for both -Americans and non- Americans. The National Kidney Disease Education Program (NKDEP) does not endorse the use of the MDRD equation for patients that are not between the ages of 18 and 70, are , have extremes of body size, muscle mass, or nutritional status, or are non- or non-. According to the National Kidney Foundation, irrespective of diagnosis, the stage of the disease is based on the level of kidney function: Stage Description GFR(mL/min/1.73 m(2)) 1 Kidney damage with normal or decreased GFR 90 2 Kidney damage with mild decrease in GFR 60-89 3 Moderate decrease in GFR 30-59 4 Severe decrease in GFR 15-29 5 Kidney failure <15 (or dialysis) 3 TAKE THIS TO YOUR PREADMISSION TESTINGAPPOINTMENT 4 *Ascorbic acid is present which may interfere with detection of blood. 5 SEE RESULT BELOW Name: CONSUELO JOE : [address]: Maura Bernal MD Acct: [id number] Unit: [id number] AGE: 62 Location: LAB Re07/20/17 SEX: F Status: REG REF SPEC: [id number] RICHARDSON: 07/20/[address] [facility] [address]: Maura Bernal MD REQ: [id number] RECD: 07/20/17 STATUS: COMP _ SOURCE: URINE SPDESC: ORDERED: Urine Culture Procedure Result Reported Site Urine Culture Final 07/21/17- 1254 ML No growth of clinically significant organisms * ML - MAIN LAB (PSC1) . END OF REPORT * ML=Testing performed at Main Lab DEPARTMENT OF PATHOLOGY, [address] [place] [address] Zach Damon M.D. Director [facility] # [id number] 6 Desirable: <150 Borderline High: 150-199 High: 200-499 Very High: >500 7 Desirable: <200 Borderline High: 200-239 High: >239 8 Low: <40 Desirable: 40-60 High: >60 9 Desirable: <100 Near Optimal: 100-129 Borderline High: 130-159 High: 160-189 Very High: >189 10 [id number] 11 SEE RESULT BELOW Name: CONSUELO JOE : [address]: Ferny Bhardwaj MD Acct: [id number] Unit: [id number] AGE: 61 Location: [facility] Re12/04/16 SEX: F Status: DEP REF SPEC: [id number] RICHARDSON: 12/04/16-[address] [facility] [address]: Ferny Bhardwaj MD REQ: [id number] RECD: 12/04/16-1233 STATUS: YESIKA PEREZ DR: Tyrell Mccollum III, MD _ ORDERED: LEVEL 4 COMMENTS: [id number] FINAL DIAGNOSIS Colon, at 75 cm, biopsy: -- Tubular adenoma. -- No high grade dysplasia or malignancy. -- Hyperplastic polyp. CLINICAL HISTORY No history given POST-OPERATIVE DIAGNOSIS Colonoscopy to cecum - tics; snare and biopsy at 25 cm, 10 years GROSS DESCRIPTION The specimen is received in formalin labeled, Biopsy Colon Polyps at 75 cm (2 ), and consists of a 0.7 x 0.5 x 0.2 cm aggregate of rowan-pink irregular to polypoid soft tissue fragments which is submitted entirely in one cassette. Signed (signature on file) Ting Barker MD 1032 END OF REPORT * ML=Testing performed at Main Lab DEPARTMENT OF PATHOLOGY, [address] [place] [address] Zach Damon M.D. Director [facility] # [id number] 12 Desirable <150 Borderline high 150-199 High 200-499 Very High >500 13 Desirable <200 Borderline high 200-239 High >239 14 Low <40 Desirable: 40-60 High: >60 15 Desirable: <100 mg/dL Near Optimal: 100-129 mg/dL Borderline High: 130-159 mg/dL High: 160-189 mg/dL Very High: >189 mg/dL 16 Because ethnic data is not always readily available, this report includes an eGFR for both -Americans and non- Americans. The National Kidney Disease Education Program (NKDEP) does not endorse the use of the MDRD equation for patients that are not between the ages of 18 and 70, are , have extremes of body size, muscle mass, or nutritional status, or are non- or non-. According to the National Kidney Foundation, irrespective of diagnosis, the stage of the disease is based on the level of kidney function: Stage Description GFR(mL/min/1.73 m(2)) 1 Kidney damage with normal or decreased GFR 90 2 Kidney damage with mild decrease in GFR 60-89 3 Moderate decrease in GFR 30-59 4 Severe decrease in GFR 15-29 5 Kidney failure <15 (or dialysis) 17 Desirable <150 Borderline high 150-199 High 200-499 Very High >500 18 Desirable <200 Borderline high 200-239 High >239 19 Low <40 Desirable: 40-60 High: >60 20 Desirable: <100 mg/dL Near Optimal: 100-129 mg/dL Borderline High: 130-159 mg/dL High: 160-189 mg/dL Very High: >189 mg/dL 21 FASTING 22 Please note: The following may produce a false positive D Dimer test: - Rheumatoid factor greater than 60 IU/ml - Plasma hemoglobin greater than 0.05 gm/dl - Bilirubin greater than 50 mg/dl - Lipids greater than 1000 mg/dl - FDP greater than 20 ug/ml 23 Because ethnic data is not always readily available, this report includes an eGFR for both -Americans and non- Americans. The National Kidney Disease Education Program (NKDEP) does not endorse the use of the MDRD equation for patients that are not between the ages of 18 and 70, are , have extremes of body size, muscle mass, or nutritional status, or are non- or non-. According to the National Kidney Foundation, irrespective of diagnosis, the stage of the disease is based on the level of kidney function: Stage Description GFR(mL/min/1.73 m(2)) 1 Kidney damage with normal or decreased GFR 90 2 Kidney damage with mild decrease in GFR 60-89 3 Moderate decrease in GFR 30-59 4 Severe decrease in GFR 15-29 5 Kidney failure <15 (or dialysis) 24 Acute inflammation: >10.00 25 Serologic response to B. burgdorferi infection is not detected, but cannot rule out early infection during which low or undetectable antibody levels to B. burgdorferi may be present. If clinically indicated, a new serum specimen should be submitted in 7-14 days. Test Performed by: [place] [address] Audio Visual Design Engineer: Damir Churchill III, M.D. 26 HDL Interpretation: Undesirable: High Risk: Less than 40 mg/dL Desirable: Low Risk: Greater than 60 mg/dL 27 LDL Interpretation: Low Risk Optimal Level: LDL Less than 100 mg/dL Near or Above Optimal: LDL 100-129 mg/dL Borderline High Risk: LDL 130-159 mg/dL High Risk: LDL 160-189 mg/dL Very High Risk: LDL Greater than 189 mg/dL 28 Because ethnic data is not always readily available, this report includes an eGFR for both -Americans and non- Americans. The National Kidney Disease Education Program (NKDEP) does not endorse the use of the MDRD equation for patients that are not between the ages of 18 and 70, are , have extremes of body size, muscle mass, or nutritional status, or are non- or non-. According to the National Kidney Foundation, irrespective of diagnosis, the stage of the disease is based on the level of kidney function: Stage Description GFR(mL/min/1.73 m(2)) 1 Kidney damage with normal or decreased GFR 90 2 Kidney damage with mild decrease in GFR 60-89 3 Moderate decrease in GFR 30-59 4 Severe decrease in GFR 15-29 5 Kidney failure <15 (or dialysis) 29 HDL Interpretation: Undesirable: High Risk: Less than 40 MG/DL Desirable: Low Risk: Greater than 60 MG/DL 30 LDL Interpretation: Low Risk Optimal Level: LDL Less than 100 MG/DL Near or Above Optimal: LDL 100-129 MG/DL Borderline High Risk: LDL 130-159 MG/DL High Risk: LDL 160-189 MG/DL Very High Risk: LDL Greater than 189 MG/DL 31 Because ethnic data is not always readily available, this report includes an eGFR for both -Americans and non- Americans. The National Kidney Disease Education Program (NKDEP) does not endorse the use of the MDRD equation for patients that are not between the ages of 18 and 70, are , have extremes of body size, muscle mass, or nutritional status, or are non- or non-. According to the National Kidney Foundation, irrespective of diagnosis, the stage of the disease is based on the level of kidney function: Stage Description GFR(mL/min/1.73 m(2)) 1 Kidney damage with normal or decreased GFR 90 2 Kidney damage with mild decrease in GFR 60-89 3 Moderate decrease in GFR 30-59 4 Severe decrease in GFR 15-29 5 Kidney failure <15 (or dialysis) 32 Anion gap measurement may be of limited value in the presence of any alkalosis, especially in a combined acid base disorder. . 33 A metabolite of Naproxen, O-desmethylnaproxen, has been shown to interfere with the Jendrass[place] method for measuring total bilirubin. Samples from patients who have taken Naproxen have shown spurious elevation in total bilirubin levels. 34 Because ethnic data is not always readily available, this report includes an eGFR for both -Americans and non- Americans. The National Kidney Disease Education Program (NKDEP) does not endorse the use of the MDRD equation for patients that are not between the ages of 18 and 70, are , have extremes of body size, muscle mass, or nutritional status, or are non- or non-. According to the National Kidney Foundation, irrespective of diagnosis, the stage of the disease is based on the level of kidney function: Stage Description GFR(mL/min/1.73 m(2)) 1 Kidney damage with normal or decreased GFR 90 2 Kidney damage with mild decrease in GFR 60-89 3 Moderate decrease in GFR 30-59 4 Severe decrease in GFR 15-29 5 Kidney failure <15 (or dialysis) 35 CHOLESTEROL INTERPRETATION: Desirable: Less than 200 MG/DL Borderline-High Risk: 200-239 MG/DL High-Risk: 240 MG/DL and over 36 HDL INTERPRETATION: Undesirable: High Risk: Less than 40 MG/DL Desirable: Low Risk: Greater than 60 MG/DL 37 LDL INTERPRETATION: Low Risk Optimal Level: LDL Less than 100 MG/DL Near or Above Optimal: LDL 100-129 MG/DL Borderline High Risk: LDL 130-159 MG/DL High Risk: LDL 160-189 MG/DL Very High Risk: LDL Greater than 189 MG/DL 38 Anion gap measurement may be of limited value in the presence of any alkalosis, especially in a combined acid base disorder. . 39 Note change in reference range as of 02/12/08. The change was based on recommendations from the [place] [employer]. 40 Please note change in reference range effective 07 . 41 A metabolite of Naproxen, O-desmethylnaproxen, has been shown to interfere with the [place] method for measuring total bilirubin. Samples from patients who have taken Naproxen have shown spurious elevation in total bilirubin levels. 42 Because ethnic data is not always readily available, this report includes an eGFR for both -Americans and non- Americans. The National Kidney Disease Education Program (NKDEP) does not endorse the use of the MDRD equation for patients that are not between the ages of 18 and 70, are , have extremes of body size, muscle mass, or nutritional status, or are non- or non-. According to the National Kidney Foundation, irrespective of diagnosis, the stage of the disease is based on the level of kidney function: Stage Description GFR(mL/min/1.73 m(2)) 1 Kidney damage with normal or decreased GFR 90 2 Kidney damage with mild decrease in GFR 60-89 3 Moderate decrease in GFR 30-59 4 Severe decrease in GFR 15-29 5 Kidney failure <15 (or dialysis) 43 CHOLESTEROL INTERPRETATION: Desirable: Less than 200 MG/DL Borderline-High Risk: 200-239 MG/DL High-Risk: 240 MG/DL and over 44 HDL INTERPRETATION: Undesirable: High Risk: Less than 40 MG/DL Desirable: Low Risk: Greater than 60 MG/DL 45 LDL INTERPRETATION: Low Risk Optimal Level: LDL Less than 100 MG/DL Near or Above Optimal: LDL 100-129 MG/DL Borderline High Risk: LDL 130-159 MG/DL High Risk: LDL 160-189 MG/DL Very High Risk: LDL Greater than 189 MG/DL 46 FASTING 47 Anion gap measurement may be of limited value in the presence of any alkalosis, especially in a combined acid base disorder. . 48 Note change in reference range as of 02/12/08. The change was based on recommendations from the [place] [employer]. 49 Please note change in reference range effective 07 . 50 A metabolite of Naproxen, O-desmethylnaproxen, has been shown to interfere with the Jendrassik-Luz method for measuring total bilirubin. Samples from patients who have taken Naproxen have shown spurious elevation in total bilirubin levels. 51 Because ethnic data is not always readily available, this report includes an eGFR for both -Americans and non- Americans. The National Kidney Disease Education Program (NKDEP) does not endorse the use of the MDRD equation for patients that are not between the ages of 18 and 70, are , have extremes of body size, muscle mass, or nutritional status, or are non- or non-. According to the National Kidney Foundation, irrespective of diagnosis, the stage of the disease is based on the level of kidney function: Stage Description GFR(mL/min/1.73 m(2)) 1 Kidney damage with normal or decreased GFR 90 2 Kidney damage with mild decrease in GFR 60-89 3 Moderate decrease in GFR 30-59 4 Severe decrease in GFR 15-29 5 Kidney failure <15 (or dialysis) 52 CHOLESTEROL INTERPRETATION: Desirable: Less than 200 MG/DL Borderline-High Risk: 200-239 MG/DL High-Risk: 240 MG/DL and over 53 HDL INTERPRETATION: Undesirable: High Risk: Less than 40 MG/DL Desirable: Low Risk: Greater than 60 MG/DL 54 LDL INTERPRETATION: Low Risk Optimal Level: LDL Less than 100 MG/DL Near or Above Optimal: LDL 100-129 MG/DL Borderline High Risk: LDL 130-159 MG/DL High Risk: LDL 160-189 MG/DL Very High Risk: LDL Greater than 189 MG/DL 55 FASTING PATIENT MAY HAVE RESULTS PER DOCTOR'S AUTHORIZATION. Questions regarding this report should be directed to your doctor. 56 CHOLESTEROL INTERPRETATION: Desirable: Less than 200 MG/DL Borderline-High Risk: 200-239 MG/DL High-Risk: 240 MG/DL and over 57 HDL INTERPRETATION: Undesirable: High Risk: Less than 40 MG/DL Desirable: Low Risk: Greater than 60 MG/DL 58 LDL INTERPRETATION: Low Risk Optimal Level: LDL Less than 100 MG/DL Near or Above Optimal: LDL 100-129 MG/DL Borderline High Risk: LDL 130-159 MG/DL High Risk: LDL 160-189 MG/DL Very High Risk: LDL Greater than 189 MG/DL 59 FASTING PATIENT MAY HAVE RESULTS PER DOCTOR'S AUTHORIZATION. Questions regarding this report should be directed to your doctor. 60 Anion gap measurement may be of limited value in the presence of any alkalosis, especially in a combined acid base disorder. . 61 PATIENT MAY HAVE RESULTS PER DOCTOR'S AUTHORIZATION. Questions regarding this report should be directed to your doctor. 62 Classification: Desirable . 63 CALCULATED LDL APPROXIMATES THE VALUE OF A DIRECT LDL MEASUREMENT. Classification: Optimal Level . 64 Classification: Desirable . 65 CALCULATED LDL APPROXIMATES THE VALUE OF A DIRECT LDL MEASUREMENT. Classification: Borderline High . 66 Anion gap measurement may be of limited value in the presence of any alkalosis, especially in a combined acid base disorder. . Procedures Date CPT Code Description Status 07/29/2017 26063 EKG Tracing & Interpretation Completed 12/04/2016 Colonoscopy Completed 08/01/2016 43358 Admin & Interp Of Health Risk Assessment w/ Patient Completed 09/17/2012 02599 Xray Knee 3 Views Completed 09/17/2012 53570 Xray Knee 3 Views Completed 09/17/2012 74667 Rad Exam; Knee, Ap&L Completed 09/17/2012 94459 Rad Exam; Knee, Ap&L Completed 06/23/2012 Mammogram Completed 03/26/2012 41720 Polysomnography Sleep Staging 4+ Parameters W/Cpap Completed 09/01/2010 Mammogram Completed 08/17/2009 Mammogram Completed 01/17/2009 61980 EKG Tracing & Interpretation Completed 01/11/2006 Colonoscopy Completed Encounters Type Date Location Provider CPT E/M Dx Office Visit 03/25/2017 [facility] M.[facility]. 44018 M17.12 8:00a [place] Office Visit 02/28/2017 [facility] Meri Howe, N.P. 65890 I10 8:40a - Rylie E78.00 M25.511 M25.512 Office Visit 09/11/2016 8:00a [facility] Joe Robles, 11724 M19.012 Of [place] LÓPEZ M19.011 Office Visit 08/01/2016 9:20a [facility] Meri Howe N.PMara 11467 Z00.01 - Rylie I10 E78.00 G47.33 M25.562 M25.511 M25.512 Office Visit 07/17/2016 1:00p [facility] Robles 35291 M19.012 Of [place] LÓPEZ M19.011 Office Visit 02/29/2016 4:20p [facility] Tyrell Mccollum, 13663 J06.9 Iraida Azar M.D. Office Visit 08/31/2015 3:00p [facility] M.D. 62042 M17.12 [place] Office Visit 11/24/2014 2:40p [facility] Tyrell Mccollum, 25875 723.1 - [place] M.DMara Office Visit 09/13/2014 2:20p [facility] Tyrell Mccollum, 93979 386.11 - [place] M.D. Office Visit 05/19/2014 3:00p [facility] Augie Woodruff, NETWORK SERVICES PROJECT MANAGER 08697 530.81 - [place] v04.81 Office Visit 10/22/2013 9:40a [facility] Tyrell Mccollum, 54815 351.0 - [place] M.D. Office Visit 09/15/2013 9:30a [facility] Antonette Hull, N.P. 54423 465.9 - [place] Office Visit 08/19/2013 2:40p [facility] Tyrell Mccollum, 20524 V70.0 - [place] M.DMara 401.1 272.0 780.57 453.40 716.96 Office Visit 04/28/2013 3:20p [facility] Tyrell Mccollum, 02059 453.40 - [place] M.DMara v04.81 Office Visit 04/06/2013 3:40p [facility] Tyrell Mccollum, 57238 453.40 - [place] M.D. Office Visit 12/04/2012 9:40a [facility] Tyrell Mccollum, 37536 401.1 - [place] M.DMara 272.0 780.57 454.1 Office Visit 09/17/2012 1:15p [facility] M.D. 17223 716.96 C.M.A. Office Visit 05/20/2012 11:00a [facility] - Tyrell Mccollum, 42753 401.1 [place] Kelsi.DMara 272.0 465.9 780.57 V04.81 Office Visit 04/29/2012 11:44a Gabe Bernal 17436 327.23 [facility] M.DMara Office Visit 03/28/2012 10:41a Gabe Bernal 95043 327.23 [facility] M.DMara Office Visit 02/13/2012 1:54p Gabe Bernal 60673 786.09 [facility] M.[place] Office Visit 12/13/2011 11:00a [facility] Amalia Mesa M.D. 03156 692.6 - [place] 564.00 911.4 848.3 Office Visit 11/09/2011 9:40a [facility] 54439 [facility] 09/24/2011 4:00p [facility], 29653 723.1 [facility] 401[facility]1 Office Visit 02/23/2011 9:40a DO Not Use [facility], 51955 V70.0 [facility] 401.1 272.0 695.11 715.90 Office Visit 02/09/2011 9:00a DO Not Use [facility], N.P. 19406 692.70 [facility] 110.2 Office Visit 10/03/2009 3:20p DO Not Use [facility], 12281 401.1 [facility] 272.0 Office Visit 01/17/2009 1:30p [facility], 13052 780.79 [facility].D. 272.0 401.1 V06.1 Office Visit 10/04/2008 3:15p [facility], 21944 729.5 [facility] M.D. Office Visit 05/06/2008 3:30p [facility], 34610 272.0 [facility] M.D. 354.0 Office Visit 01/01/2008 10:45a [facility], 11848 465.9 [facility] M.D. Office Visit 10/22/2007 2:30p [facility], 80713 272.0 [facility] M.D. 401.1 Office Visit 07/02/2007 3:15p [facility], 88268 466.0 [facility] M.D. Office Visit 03/25/2007 10:45a [facility] Mccollum, 88917 780.4 [facility].[place] 272.0 401.1 300.09 Plan of Care Future Appointment(s):10/02/2017 8:15 am - Shmuel Naik M.D. at [facility]09/10/2017 7:30 am - ALIVIA Craig at [facility].09/10/2017 7:30 am - Shmuel Naik M.D. at [facility].09/02/2017 - Shmuel Naik M.D.M17.12 Unilateral primary osteoarthritis, left kneeNew Medication:Lovenox 40 mg/0.4MLFollow up:Follow up: Left knee replacement 09/10/17
--- OUTSIDE RECORDS SUMMARY | 2017-09-10 06:02 | XMS REPORT ---
:1955 External Reference #:[id number] Author Organization [facility] Address [address] [place] [address] Phone [phone] Care Team Providers Name Role Phone Meri Howe NP Primary Care Physician Unavailable Payers Type Date Identification Numbers Payment Provider Subscriber Commercial Policy Number: [id number] [employer] Ppo/Pos/Epo/Nap Consuelo Lawrence Group Number: [id number] [address] PayID: [id number] [place] [address] Problems Date Description Provider Status Onset: 08/05/2014 Essential hypertension Active Onset: 08/05/2014 Pure hypercholesterolemia Active Onset: 08/05/2015 Ocular hypertension Say Aceves M.D. Active Onset: 08/05/2015 Nuclear senile cataract Say Aceves M.D. Active Onset: 02/03/2016 Primary open-angle glaucoma, mild Say Aceves M.D. Active stage Onset: 04/10/2016 Primary open angle glaucoma of left Say Aceves M.D. Active eye Onset: 04/26/2016 Myopia Erica Mcghee O.D. Active Onset: 04/26/2016 Regular astigmatism Erica Mcghee O.D. Active Onset: 04/26/2016 Presbyopia Erica Mcghee O.D. Active Onset: Arthritis Active Note: Shoulders Onset: 11/06/2016 Refractive amblyopia Say Aceves M.D. Active Onset: 11/06/2016 Primary open angle glaucoma of left Say Aceves M.D. 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[employer] Use Occasionally consumes alcohol Smoking Patient has never smoked Recreational Drug Use Denies Drug Use Daily Caffeine Consumes on average 3 cups of regular coffee per day Daily Caffeine Consumes on average 3 cups of hot tea per day Daily Caffeine alternates tea and coffee Allergies, Adverse Reactions, Alerts Date Description Reaction Status Severity Comments 08/05/2014 Daypro active 08/05/2014 Codeine active 08/05/2014 Shellfish active 08/05/2014 TUNA active 07/01/2017 Bee Stings active Medications Medication Date Status Form Strength Qnty SIG Indications Ordering Provider Hydrochlorothiazide 00/ Active Tablets 25mg qd Unknown 0000 Valsartan 00/ Active Tablets qd Unknown 0000 Simvastatin 00/ Active Tablets 10mg Half Unknown 0000 every day Aspir-81 00/ Active Tablets DR 81mg Unknown 0000 Vitamin B Complex / Active Tablets every Unknown 0000 day Fish Oil / Active Capsules 500mg twice Unknown 0000 a day Vitamin D3 00/ Active Tablets 4000Unit Unknown 0000 Celebrex / Active Capsules 100mg Unknown 0000 Pred Forte 05/23/ Hx Suspension 1% 5ml One H40.1121 Say Traore 2016 - drop Arleo, M.D. 2017 times a day in the left eye for three days, then discon tinue. Pred Forte 02/02/ Hx Suspension 1% 5ml One H40.11x1 Say Traore 2015 - drop Arleo, M.D. 2015 times a day in the left eye for three days, then discon tinue. Vital Signs Date Vital Result Comment 07/01/2017 BP Systolic 143 mmHg BP Diastolic 85 mmHg Heart Rate 80 /min Respiratory Rate 15 /min 03/06/2016 BP Systolic 120 mmHg BP Diastolic 80 mmHg Heart Rate 68 /min Respiratory Rate 15 /min Results Description No Information Procedures Date CPT Code Description Status 07/01/2017 96877 Trabeculoplasty By Laser Surgery Completed 05/23/2017 84736 Determination Of Refractive State Completed 05/23/2017 50423 Est Patient Intermediate Exam Completed 11/06/2016 63564 Scanning Computerized Ophthalmic Diagnostic Imag Completed Posterior Seg On 11/06/2016 29842 Visual Field Exam Extended Completed 11/06/2016 80000 Est Patient Comprehensive Exam Completed 03/06/2016 22843 Trabeculoplasty By Laser Surgery Completed 02/03/2016 58127 Visual Field Exam Extended Completed 02/03/2016 82517 Determination Of Refractive State Completed 02/03/2016 64167 Est Patient Intermediate Exam Completed 08/05/2015 10844 Est Patient Comprehensive Exam Completed 08/05/2015 02707 Scanning Computerized Ophthalmic Diagnostic Imag Completed Posterior Seg On 08/05/2014 00294 Determination Of Refractive State Completed 08/05/2014 83762 Est Patient Comprehensive Exam Completed 07/31/2013 47392 Scanning Computerized Ophthalmic Diagnostic Imag Completed Posterior Seg On 07/31/2013 51099 Visual Field Exam Extended Completed 07/31/2013 51023 Determination Of Refractive State Completed 07/31/2013 89575 Est Patient Intermediate Exam Completed 01/27/2013 36632 Fundus Photography With Interpretation And Report Completed 01/27/2013 38318 Determination Of Refractive State Completed 01/27/2013 23224 New Patient Comprehensive Exam Completed Encounters Type Date Location Provider CPT E/M Dx Office Visit 04/10/2016 Say Aceves MD, [place], [address] H40.1121 8:30a magda Simms H40.051 Plan of Care 08/12/2017 - Say Aceves M.D.H40.1121 Primary open-angle glaucoma, left eye , mild stageComments:Smoking can increase the risk of developing or worsening any eye related disease, as well as affect your overall health. If you are a smoker, we strongly recommend that you quit.If you are not a smoker, we strongly recommend that you do not start. Your left eye responded well to the laser treatment. Your eye pressure in your left eye is within the target range without adding additional medication. We will continue to monitor your eye pressure.Follow up:4 Month Follow Up IOP Check Visual Field, 30-2 OCT ON At your next visit, we are not planning to dilate your eyes. However, if you have any changes in your vision or new symptoms, there are certain situations that require us to dilate your eyes. If Dr. Aceves requests any additional testing, that mayrequire extra time. If you have any questions before your next appointment, please call our office at .V35.373 Ocular hypertension, right eyeH53.022 Refractive amblyopia, left eye
[2017-09-10] MEDS ORDERED: Famotidine IV* 10 MG/ML 2 ML (20 mg) ONE (06:05)
[2017-09-10] MEDS ORDERED: Gabapentin CAP(*) 300 MG ONE (06:06)
[2017-09-10] MEDS ORDERED: Scopolamine 1.5 mg* PATCH ONE (06:06)
[2017-09-10] MEDS ORDERED: Buffered Lidocaine 0.9% SYRIN* 5 ML/SYR SYRINGE ONE (06:06)
[2017-09-10] MEDS ORDERED: ceFAZolin 2 GM (*##) 2 GM/100 ML BAG USE CEFA2SOL IVPB ONE (06:06)
[2017-09-10] MEDS ORDERED: Gabapentin CAP(*) 300 MG PO ONE (06:45)
[2017-09-10] MEDS ORDERED: Midazolam* 1 MG/ML 10 ML VIAL (10 MG) ONE (07:10)
[2017-09-10] MEDS ORDERED: fentaNYL* 50 MCG/ML 2 ML VIAL (100 MCG VIAL) ONE (07:10)
[2017-09-10] MEDS ORDERED: Bupivacaine 0.5% SDV PF* 10-30ML VIAL ONE ×2 (07:27→09:10)
[2017-09-10] MEDS ORDERED: Lidocaine 1% MPF wEPI 200,000* 30 ML SDV ONE (08:10)
[2017-09-10] MEDS ORDERED: Bupivacaine 0.25% SDV* 30 ML ONE ×2 (08:10→09:10)
[2017-09-10] MEDS ORDERED: Ondansetron INJ* 2 MG/ML VIAL ONE (08:18)
[2017-09-10] MEDS ORDERED: Lidocaine 2% PF * 5 ML VIAL ONE (08:18)
[2017-09-10] MEDS ORDERED: Dexamethasone IV* 4 MG/ML 1 ML (4 MG) ONE (08:18)
[2017-09-10] MEDS ORDERED: Propofol* 500 MG/50 ML BTL ONE (08:18)
[2017-09-10] MEDS ORDERED: Phenylephrine INJ* 10 MG/ML 1 ML VIAL (10 MG) ONE (09:10)
[2017-09-10] MEDS ORDERED: Propofol* 10 MG/ML 20 ML BTL IV PUSH ONE (10:14)
[2017-09-10] MEDS ORDERED: PROCHLORPERAZINE INJ 5 MG/ML 2 ML VIAL ONE (10:17)
[2017-09-10] MEDS ORDERED: Ketorolac INJ* 30 MG/ML 1 ML VIAL ONE (10:17)
[2017-09-10] MEDS ORDERED: traZODone TAB* 50 MG TAB PO PRN (10:36)
[2017-09-10] MEDS ORDERED: oxyCODONE TAB* 5 MG TAB PO PRN (10:36)
[2017-09-10] MEDS ORDERED: Ondansetron INJ* 2 MG/ML VIAL IV PRN (10:36)
[2017-09-10] MEDS ORDERED: diPHENhydraMINE IV* 50 MG/ML 1 ml VIAL (BENADRYL) IV PRN (10:36)
[2017-09-10] MEDS ORDERED: celeCOXIB CAP* 100 MG PO PRN (10:41)
--- NOTE | 2017-09-10 13:24 | RAD ---
Indication: Left knee replacement. 2 views of left knee demonstrates bipolar left knee arthroplasty in satisfactory position. No evidence of periprosthetic fracture is noted. IMPRESSION: Left knee replacement in satisfactory position.
[2017-09-10] MEDS: ceFAZolin 1 GM in Dextrose (*) 1 GM/50 ML BAG IVPB SCH ×2 (15:55→23:01)
[2017-09-10] MEDS: CMC:Simvastatin TAB(NF) 10 MG TAB PO SCH (18:23)
[2017-09-10] MEDS: Magnesium Hydroxide LIQ* 30 ML UDC PO SCH (21:55)
[2017-09-10] MEDS: celeCOXIB CAP* 200 MG PO SCH (21:55)
[2017-09-10] MEDS: Docusate CAP* 100 MG PO SCH (21:55)
[2017-09-10] MEDS: oxyCODONE/Acetamin 5/325 MG* TAB PO PRN (23:00)
[2017-09-10] MEDS: Cyclobenzaprine TAB* 10 MG PO PRN (23:08)
--- NOTE | 2017-09-11 04:44 | OP ---
CC: Dr. Bernal, [facility] Internal Medicine OPERATIVE REPORT: DATE OF OPERATION: 09/10/17 DATE OF : 55 SURGICAL CARE: Left knee. SURGEON: Shmuel Naik MD ASSISTANTS: GONZALO Craig; GONZALO Torrez; GONZALO Hurd COAL SCREENER: GONZALO Hurd. ANESTHESIOLOGIST: Dr. Augie Harkins. ANESTHESIA: Left leg femoral/saphenous nerve block mid thigh anteromedial and spinal. PRE-OP DIAGNOSIS: Severe arthritis of the left knee with valgus malalignment. POST-OP DIAGNOSES: Severe arthritis of the left knee with valgus malalignment. OPERATIVE PROCEDURE: Left total knee replacement. COMPONENTS UTILIZED: Aiden Persona knee, posterior stabilized, a size 6 femur narrow, a 32 patella, a size D tibia with the 10 articular surface. COMPLICATIONS: There were no complications to blood collection, drains left knee. At the end of the case, there were no complications. BLOOD LOSS: 250 mL. REPLACEMENT: Crystalloid fluids. OPERATIVE INDICATION: Severe arthritis and valgus malalignment of the knee, she has had it for many many years, it has been no longer responsive to nonoperative care and a knee replacement was recommen ded. DESCRIPTION OF PROCEDURE: The patient was brought to the operating room and placed on the operating room table in a supine position following the administration of the left thigh block and the spinal, and the patient was returned to the supine position. A Rodas catheter was inserted. The left dorsal is pedis pulse and posterior tibial pulse were noted to be 2+. The left leg was wrapped [facility]. The left leg was given a preliminary chlorhexidine prep and then a formal Chlo raPrep from the tourniquet to the tips of the toes. After prepping, draping, and sealing off, we did our universal protocol time-out confirming Consuelo Small and the plan for a left total knee replaceme nt. We all agreed and we proceeded. The surgical care was done without tourniquet until the clean-u p and cementing phase of the case. The leg was acutely flexed at the knee and the left foot was plac ed on a padded foot piece. The skin incision went from 2 fingerbreadths proximal to the superior ting e of the patella to the medial aspect of the tibial tubercle. Careful hemostasis was checked and ach ieved throughout the case utilizing electrocautery. The skin was opened. The skin divided down to t he deep fascia. The prepatellar bursa was traversed and the knee was entered medial parapatellar. T here was a large amount of clear straw-colored synovial fluid. The quad mechanism divided at the alli ction of the rectus femoris and the vastus medialis staying as close to the vastus medialis in the te ndon as possible. The knee entered medial parapatellar and the anteromedial soft tissues on the tibi a were divided down to the bone and on the medial side, they were elevated subperiosteally going arou nd to the deep MCL and then to the posterior medial corner of the knee. The patella was made so that it could be everted. The synovectomy was completed around the patella. The remains of the anterior horn of medial meniscus were carefully excised. The distal anterior femur was exposed subperiosteal ly for referencing and measuring. The surgical findings are as complete eburnation of the lateral femoral condyle, lateral tibial plate au with some scooping out of the medial tibial plateau and osteophytes in both areas. The intercondy lar osteophytes were removed. The ACL and PCL were uplifted from their femoral origins. The tibia w as made, so it could be subluxated forward from under the femur and the PCL was carefully excised. Gr eat care was taken while working posteriorly in the knee and careful hemostasis. The remains of a torn of lateral meniscus were carefully excised and careful hemostasis was achieved at the periphery of the lateral meniscus for the lateral geniculate. The synovectomy was completed a round the patella. The proximal tibial cut was made first. Our goal here was to have a tibial surfa ce that would be perpendicular to the long axis of the tibia and have a slight posterior slope. The low point on the lateral tibial plateau just a millimeter bone was removed around the medial side up to a centimeter. After completing this cut, then the distal femoral intramedullary drill was utilize d and the femoral canal was suctioned to discourage embolization. The distal femoral cutting guide w as applied with 5 degrees of valgus for a left and on zero because this knee had some hyperextension and after applying the block to the distal femur, then I moved the block 2 mm distally to remove left femur on the distal end of femur. This cut was completed and the extension gap was good for a 10 mm block. The femur was then measured for a size 6 and the external rotation was accounted for by plac ing an osteotome underneath the pad on the lateral condyle. The distal femoral cuts were then comple zacarias for the size 6 anterior, posterior, and chamfering. We then finished removal of the posterior ho rn of medial meniscus, carefully preserving the MCL, removal of posterior osteophytes on the posterio r medial femoral condyle and finished removal of the PCL and the lateral meniscus once again with car eful hemostasis in the region of the lateral geniculate. At this stage, we had nice ligamentous destiney nce and extension including the MCL with a 10-mm block and in flexion 90 degrees with a 10-mm block a nd I did not think any special constrain of the knee would be necessary. I elected to use a needle on the femur. The tibia was then completed for a size D. the knee was kandy culated and extended with the D tibia, 10 articular surface and the 6 femur with full knee extension, stable ligaments and extension including the MCL and stable ligaments in 90 degrees of flexion. I d id not have enough bone to plug the femur. The femoral canal was clean x6 with salines and suctioned down deep. The patella was cut flat and measured for a 32. Three drill holes were made, these were undercut and a lateral release was not necessary. The leg was then exsanguinated. The tourniquet e levated to 275. The knee was cleaned in extension with 3 L of pulse saline irrigation and the knee w as flexed. Retractors were put into position, then all bony surfaces were cleaned with a pulsed sali ne. All surfaces were dried. The cement was mixed and the components were cemented into position, pa tella followed by tibia, followed by femur. Each was impacted. Excess cement was removed and the kne e was articulated and extended during the final hardening. After hardening, we checked posteriorly for retained cement and all retained cement was removed. The pericapsular tissues were infiltrated with Marcaine 0.25% without epinephrine mixed with 1% Xylocain e with epinephrine and we used about 50 mL of this mixture. We went posteromedially, medially, anter olaterally and then the rest we left. We inserted into the knee during closure. The careful hemosta sis was checked and achieved. We checked posteriorly for retained cement as noted. The quadriceps m echanism reapproximated with interrupted #1 Polysorb in the figure-of- eight fashion and more distall y on the medial retinaculum and distal soft tissues were used 0 Polysorb. The deep bursa closed with 0 Polysorb, superficial subcu closed with inverted 3-0 Polysorb and the skin was closed with stephanie . During the closure, we inserted more of the Marcaine, lidocaine with epi mixture into the knee and the drains were clamped while we finished the closure. The skin was carefully closed with stephanie. The knee was flexed and extended several times during the closure and flexed while passed 130 degree s several times and had full extension. Dressing was applied after washing and drying with Betadine-s oaked release on the surgery, stephanie and the drain sites. Sterile gauze, sterile Webril, cryotherap y cuff, ABD pads, further Webril, and a 6-inch Sarmad bandage loosely applied. The patient was returned to the recovery room in stable and satisfactory condition, having tolerated the procedure very well. [id number]/[facility] #: [id number]
[2017-09-11 06:31] LABS: Hematocrit 35 % (35-47); Hemoglobin 11.7 g/dl (12.0-16.0); Mean Platelet Volume 8 um3 (7.4-10.4); Platelet Count 245 10^3/ul (150-450)
[2017-09-11 06:46] LABS: EGFR Non-African American 89.2 (>60)
[2017-09-11] MEDS: oxyCODONE/Acetamin 5/325 MG* TAB PO PRN ×4 (07:21→23:16)
[2017-09-11] MEDS: ceFAZolin 1 GM in Dextrose (*) 1 GM/50 ML BAG IVPB SCH (07:21)
--- NOTE | 2017-09-11 07:31 | PN ---
Progress Note - Progress Note Date of Service: 09/11/17 SOAP: Subjective: [ Some pain left knee. She was able to sleep some.] Objective: []IN 5387 ml, Out 4480 ml. Awake, alert, cooperative, breathing easily. X-ray left knee post op, all satisfactory. Hct 35%, lytes are OK, Glucose 124. 2 drains removed left knee. Dressing is dry. Left DP pulse is 2 plus. Able to lift left leg and left ankle moves up and down actively. Assessment: []Doing well, acute blood loss anemia. Plan: []Up with walker. Start Lovenox ( she has Pul. Embolism Hx), drinking and incentive spirometer.
[2017-09-11] MEDS: Fluticasone NASAL SPRAY 50MCG* 16 gm SPRAY BTL BOTH NARES SCH (08:52)
[2017-09-11] MEDS: CMC:OMEGA-3 FATTY ACIDS (NF) 1,000 MG CAP PO SCH (08:55)
[2017-09-11] MEDS: Vitamin B Complex TAB PO SCH (08:55)
[2017-09-11] MEDS: Cholecalciferol TAB* 1000 UNITS PO SCH (08:55)
[2017-09-11] MEDS: Valsartan TAB* 80 MG PO SCH (08:55)
[2017-09-11] MEDS: Vitamin THERAPEUTIC TAB PO SCH (08:55)
[2017-09-11] MEDS: Magnesium Hydroxide LIQ* 30 ML UDC PO SCH ×2 (08:55→21:40)
[2017-09-11] MEDS: Hydrochlorothiazide TAB* 25 MG PO SCH (08:55)
[2017-09-11] MEDS: Docusate CAP* 100 MG PO SCH ×2 (08:57→21:39)
[2017-09-11] MEDS: celeCOXIB CAP* 200 MG PO SCH ×2 (08:57→21:39)
[2017-09-11] MEDS: Enoxaparin(*) 40 MG/0.4 ML SYR SUBCUT SCH (08:58)
[2017-09-11] MEDS ORDERED: Enoxaparin(*) 40 MG/0.4 ML SYR SUBCUT SCH (08:58)
[2017-09-11] MEDS: Ascorbic Acid TAB* 500 MG PO SCH (08:58)
--- NOTE | 2017-09-11 14:21 | PN ---
Progress Note - Progress Note Date of Service: 09/11/17 Note: Called to patient room as she heard a loud pop from her operative knee while participating with physical therapy. Event was painless, no feeling of shifting within the knee. Was able to walk without pain after hearing the pop. She is in no pain at this time. At bedside I removed the bulk of the dressing for exam. Left knee is able to flex to 90 and straighten to 0 degrees without pain. Knee is nontender to palpation. No gross deformity. Redressed. Xray ordered.
--- NOTE | 2017-09-11 15:13 | RAD ---
Indication: Left knee replacement. 2 views of left knee demonstrates bipolar left knee replacement in satisfactory position. No loosening is noted. No fracture is noted. IMPRESSION: Left knee replacement in satisfactory position.
[2017-09-11] MEDS: CMC:Simvastatin TAB(NF) 10 MG TAB PO SCH (18:01)
[2017-09-12 05:27] LABS: Hematocrit 31 % (35-47); Hemoglobin 10.3 g/dl (12.0-16.0); Mean Platelet Volume 8.2 um3 (7.4-10.4); Platelet Count 211 10^3/ul (150-450)
[2017-09-12] MEDS: oxyCODONE/Acetamin 5/325 MG* TAB PO PRN ×4 (06:31→21:31)
[2017-09-12] MEDS: Valsartan TAB* 80 MG PO SCH (08:34)
[2017-09-12] MEDS: celeCOXIB CAP* 200 MG PO SCH ×2 (08:34→21:35)
[2017-09-12] MEDS: Magnesium Hydroxide LIQ* 30 ML UDC PO SCH ×2 (08:34→21:16)
[2017-09-12] MEDS: Fluticasone NASAL SPRAY 50MCG* 16 gm SPRAY BTL BOTH NARES SCH (08:35)
[2017-09-12] MEDS: CMC:OMEGA-3 FATTY ACIDS (NF) 1,000 MG CAP PO SCH (08:35)
[2017-09-12] MEDS: Cholecalciferol TAB* 1000 UNITS PO SCH (08:36)
[2017-09-12] MEDS: Cyclobenzaprine TAB* 10 MG PO PRN (08:36)
[2017-09-12] MEDS: Hydrochlorothiazide TAB* 25 MG PO SCH (08:36)
[2017-09-12] MEDS: Vitamin B Complex TAB PO SCH (08:37)
[2017-09-12] MEDS: Ascorbic Acid TAB* 500 MG PO SCH (08:37)
[2017-09-12] MEDS: Vitamin THERAPEUTIC TAB PO SCH (08:37)
[2017-09-12] MEDS: Enoxaparin(*) 40 MG/0.4 ML SYR SUBCUT SCH (08:38)
[2017-09-12] MEDS: Docusate CAP* 100 MG PO SCH ×2 (08:38→21:32)
[2017-09-12] MEDS ORDERED: Bisacodyl SUPP* 10 MG SUPP PR PRN (13:03)
--- NOTE | 2017-09-12 13:26 | PN ---
Progress Note - Progress Note Date of Service: 09/12/17 SOAP: Subjective: []Patient seen at bedside. She expresses well controlled left knee pain. No chest pain, shortness of breath, dizziness, nausea or leg numbness. Objective: [] Vital Signs Temp 97.8 F 09/12/17 12:03 Pulse 73 09/12/17 12:03 Resp 16 09/12/17 12:56 BP 126/53 09/12/17 12:03 Pulse Ox 97 09/12/17 12:03 Intake & Output 09/11/17 09/12/17 09/12/17 18:59 06:59 18:59 Intake Total 1846 1240 545 Output Total 1050 300 300 Balance 796 940 245 Intake: IV Fluids 796 ABX - CEFAZOLIN 50 LR 746 Oral 1050 1240 545 Output: Urine 1050 300 300 Other: # Bowel Movements 0 Laboratory Last Values Hgb 10.3 g/dl (12.0-16.0) L 09/12/17 05:05 Hct 31 % (35-47) L 09/12/17 05:05 Plt Count 211 10^3/ul (150-450) 09/12/17 05:05 MPV 8.2 um3 (7.4-10.4) 09/12/17 05:05 Sodium 138 mmol/L (133-145) 09/11/17 06:12 Potassium 3.8 mmol/L (3.5-5.0) 09/11/17 06:12 Chloride 101 mmol/L (101-111) 09/11/17 06:12 Carbon Dioxide 31 mmol/L (22-32) 09/11/17 06:12 Anion Gap 6 mmol/L (2-11) 09/11/17 06:12 BUN 12 mg/dL (6-24) 09/11/17 06:12 Creatinine 0.67 mg/dL (0.51-0.95) 09/11/17 06:12 Est GFR ( Amer) 114.7 (>60) 09/11/17 06:12 Est GFR (Non-Af Amer) 89.2 (>60) 09/11/17 06:12 BUN/Creatinine Ratio 17.9 (8-20) 09/11/17 06:12 Glucose 124 mg/dL (70-100) H 09/11/17 06:12 Calcium 9.2 mg/dL (8.6-10.3) 09/11/17 06:12 General: Well appearing, NAD LLE: Dressing changed. Incision CDI with well approximated wound edges, no erythema or discharge. DF/PF intact. Knee flexion and extension intact. Able to straight leg raise. No gross deformity of knee. DP/PT pulse 2+. Sensation intact distally. BL LE: Calves supple and nontender without erythema, edema or palpable cords. Assessment: []POD 2 sp Left total knee arthroplasty 09/10 Dr Naik Plan: []WBAT PT/OT Lovenox for DVT prophylaxis due to hx PE Xrays reviewed, prosthesis in satisfactory position, no fractures. Patient fearful to participate in stairs this morning with PT. She did not feel pain or unsteadiness prevented participation. I have discussed the importance of attempting stairs with PT in absence of severe pain/ unsteadiness/ other concerns DC home tomorrow. Dr. Naik saw and examined the patient, as well as reviewed xrays this morning.
[2017-09-12] MEDS: CMC:Simvastatin TAB(NF) 10 MG TAB PO SCH (17:11)
[2017-09-13 05:51] LABS: Hematocrit 29 % (35-47); Hemoglobin 9.9 g/dl (12.0-16.0); Mean Platelet Volume 8.3 um3 (7.4-10.4); Platelet Count 203 10^3/ul (150-450)
[2017-09-13] MEDS ORDERED: Scopolamine PATCH Remove* 1 NOTE MISC PATCH OFF ONE (06:00)
[2017-09-13] MEDS: Hydrochlorothiazide TAB* 25 MG PO SCH (08:48)
[2017-09-13] MEDS: Cyclobenzaprine TAB* 10 MG PO PRN (08:48)
[2017-09-13] MEDS: Valsartan TAB* 80 MG PO SCH (08:49)
[2017-09-13] MEDS: Docusate CAP* 100 MG PO SCH (08:49)
[2017-09-13] MEDS: oxyCODONE/Acetamin 5/325 MG* TAB PO PRN ×2 (08:49→12:43)
[2017-09-13] MEDS: Ascorbic Acid TAB* 500 MG PO SCH ×2 (08:49→08:59)
[2017-09-13] MEDS: Vitamin THERAPEUTIC TAB PO SCH (08:50)
[2017-09-13] MEDS: Cholecalciferol TAB* 1000 UNITS PO SCH (08:50)
[2017-09-13] MEDS: CMC:OMEGA-3 FATTY ACIDS (NF) 1,000 MG CAP PO SCH ×2 (08:51→08:59)
[2017-09-13] MEDS: Fluticasone NASAL SPRAY 50MCG* 16 gm SPRAY BTL BOTH NARES SCH ×2 (08:51→08:55)
[2017-09-13] MEDS: Enoxaparin(*) 40 MG/0.4 ML SYR SUBCUT SCH (08:51)
[2017-09-13] MEDS: Vitamin B Complex TAB PO SCH ×2 (08:51→08:56)
[2017-09-13] MEDS: celeCOXIB CAP* 200 MG PO SCH (08:51)
[2017-09-13] MEDS: Magnesium Hydroxide LIQ* 30 ML UDC PO SCH (08:52)
--- NOTE | 2017-09-13 12:02 | PN ---
Progress Note - Progress Note Date of Service: 09/13/17 SOAP: Subjective: 62 y/o female s/p L TKR by DR Naik 09/10/2017. Patient working well with PT, cautious about activities but did stairs/ walking well, cleared for home by PT. VSS, afebrile overnight. Objective: General- Well appearing, NAD, AO, sitting in chair comfortably, observed walking with PT well with walker MSK- LLE- DF/PF = b/l, PT 2+, negative homans sig, dressing removed, i c/d/i, no erythema/ ecchymosis. stephanie intact, redressed sitlt. Assessment: Stable 62 y/o female s/p L TKR by DR Naik 09/10/2017. Plan: - DVT prophylaxis- lovenox at home x 1 month post-op due to previous PE. Patient educated on symptoms. - Continue PT/ OT - Follow up with Dr. Naik within 10-14 days - H&H - stable - post-op IV ABX - completed. Vital Signs Temp 96.8 F 09/13/17 07:40 Pulse 86 09/13/17 07:40 Resp 16 09/13/17 08:49 BP 150/61 09/13/17 07:40 Pulse Ox 100 09/13/17 07:40 Intake & Output 09/12/17 09/13/17 09/13/17 18:59 06:59 18:59 Intake Total 545 1800 360 Output Total 1200 1300 700 Balance -655 500 -340 Intake: Oral 545 1800 360 Output: Urine 1200 1300 700 Other: # Bowel Movements 1 Estimated Stool Amount Large Ascorbic Acid (Vitamin C Tab*) 500 mg PO QAM [facility] Last Admin: 09/13/17 08:59 Dose: Not Given Bisacodyl (Dulcolax Supp*) 10 mg MD DAILY PRN PRN Reason: CONSTIPATION Last Admin: 09/12/17 16:17 Dose: 10 mg Celecoxib (Celebrex Cap*) 200 mg PO BID [facility] Last Admin: 09/13/17 08:51 Dose: 200 mg Cholecalciferol (Vitamin D Tab*) 2,000 units PO QAM [facility] Last Admin: 09/13/17 08:50 Dose: 2,000 units Cyclobenzaprine HCl (Flexeril Tab*) 5 mg PO TID PRN PRN Reason: SPASMS Last Admin: 09/13/17 08:48 Dose: 5 mg Diphenhydramine HCl (Benadryl Iv*) 25 mg IV Q6H PRN PRN Reason: itching Docusate Sodium (Colace Cap*) 100 mg PO BID [facility] Last Admin: 09/13/17 08:49 Dose: 100 mg Enoxaparin Sodium (Lovenox(*)) 40 mg SUBCUT Q24H [facility] Last Admin: 09/13/17 08:51 Dose: 40 mg Fish Oil (Fish Oil (Nf)) 1,000 mg PO QAM [facility] PRN Reason: Protocol Last Admin: 09/13/17 08:59 Dose: Not Given Fluticasone Propionate (Flonase Nasal [place] 50mcg*) [facility] [place] Admin: 09/13/17 08:55 Dose: Not Given Hydrochlorothiazide (Hydrodiuril Tab*) 25 [facility] Last Admin: 09/13/17 08:48 Dose: 25 mg Lactated Ringer's (Lactated Ringers 1000 Ml Bag*) 1,000 mls @ 75 mls/hr IV PER RATE [facility] Last Admin: 09/11/17 03:06 Dose: 75 mls/hr Magnesium Hydroxide (Milk Of Magnesia Liq*) 30 ml PO BID [facility] Last Admin: 09/13/17 08:52 Dose: Not Given Multivitamins (Theragran Tab*) 1 tab PO DAILY [facility] Last Admin: 09/13/17 08:50 Dose: 1 tab Ondansetron HCl (Zofran Inj*) 4 mg IV Q6H PRN PRN Reason: nausea Last Admin: 09/12/17 09:57 Dose: 4 mg Oxycodone HCl (Roxycodone Tab*) 10 mg PO Q4H PRN PRN Reason: PAIN - SEVERE Last Admin: 09/11/17 03:04 Dose: 10 mg Oxycodone/Acetaminophen (Percocet 5/325 Tab*) 2 tab PO Q4H PRN PRN Reason: PAIN Last Admin: 09/13/17 08:49 Dose: 2 tab Simvastatin (Zocor(Nf)) 10 mg PO QPM [facility] Last Admin: 09/12/17 17:11 Dose: 10 mg Trazodone HCl (Desyrel Tab*) 25 mg PO BEDTIME PRN PRN Reason: insomnia Valsartan (Diovan Tab*) 80 mg PO QAM [facility] Last Admin: 09/13/17 08:49 Dose: 80 mg Vitamin B Complex/Vitamin E (Complex B-100*) 1 tab PO [facility] Last Admin: 09/13/17 08:56 Dose: Not Given
[2017-09-13 13:44] VITALS: BP 111/50
--- NOTE | 2017-09-17 00:08 | DS ---
DISCHARGE SUMMARY: DATE OF ADMISSION: 09/10/17 DATE OF DISCHARGE: 09/13/17 PROVIDER: Dr. Naik * (DICTATED BY GONZALO DING) CHIEF COMPLAINT: 1. Left knee pain, deformity. 2. History of deep venous thrombosis. 3. Sleep apnea. 4. Elevated cholesterol. 5. Hypertension. DISCHARGE DIAGNOSES: 1. Status post left total knee replacement. 2. History of deep venous thrombosis. 3. Sleep apnea. 4. Elevated cholesterol. 5. Hypertension. PROCEDURE: Left total knee replacement. BRIEF HISTORY: Ms. Lawrence is a very pleasant 62-year-old female with end-stage degenerative osteoarthritis of the left knee, who failed conservative treatment and elected to undergo a left total knee arthroplasty by Dr. Naik on 09/10/17. HOSPITAL COURSE: Ms. Lawrence was admitted to [facility] on 09/10/17 where she underwent a left total knee replacement, which was uncomplicated with an estimated blood loss of 250 mL. Postoperatively, she recovered on the surgical short-stay unit. On postoperative day #1, her postoperative drain was removed. She was able to void on her own and advanced to a regular diet without difficulty. Her pain was controlled with p.o. Percocet and she was restarted on her home medications. Her labs and vitals had remained stable. She was able to weight bear as tolerated on the left lower extremity and advanced appropriately with physical therapy and occupational therapy. Her DVT prophylaxis was managed with Lovenox, which she will continue for approximately 1 months postoperatively due to her past history of DVT and PE. By postoperative day 3, she was orthopedically and medically stable for discharge to home with home services. PHYSICAL EXAMINATION: General: Well appearing, in no acute distress, alert and oriented, appears stated age, working well with physical therapy. Vital Signs: Temperature 96.8, pulse 86, respirations 16, blood pressure 150/61, pulse oxygenation 100% on room air. Examination of the left lower extremity shows dorsiflexion and plantar flexion is equal bilaterally with posterior tibial pulse, 2+. Negative Homans sign bilaterally. The surgical dressing was removed and the incision was clean, dry, and intact with no erythema or ecchymosis. [place] were intact. The area was redressed without difficulty. Sensation to light touch was intact in the left lower extremity. LABORATORY DATA: On the date of discharge include H and H of 9.9 and 23. DISCHARGE MEDICATIONS: Include: 1. Simvastatin 10 mg at bedtime. 2. Hydrochlorothiazide 25 mg p.o. q.a.m. 3. Aspirin 81 mg p.o. q.a.m. 4. Vitamin B complex 1 capsule p.o. q.a.m. 5. Vitamin D 2000 International Units orally every morning. 6. Celebrex 100 mg once as needed to use sparingly while taking Lovenox. 7. Fluconazole 2 sprays both nares every morning. 8. [place]-3 fatty acid 1 tablet every morning. 9. Valsartan 80 mg p.o. q.a.m. 10. Tylenol 2 tablets every 8 hours as needed. 11. Ascorbic acid 500 mg q.a.m. 12. Oxycodone 5 mg tablet, 1 to 3 tablets every 4 to 6 hours as needed for pain. 13. Lovenox subcu injection daily x4 weeks total. 14. Flexeril 5 mg tablets, 1 tablet 3 times a day as needed for muscle spasm. CONDITION ON DISCHARGE: Stable. DISCHARGE INSTRUCTIONS: Ms. Lawrence is a very pleasant 62-year-old female, postoperative day #3, status post left total knee arthroplasty which was uncomplicated. She is orthopedically and medically stable for discharge to go home with home services. Her labs and vital signs are stable. She will restart her home medications. She will take Lovenox daily as prescribed for DVT prophylaxis. She will remain weightbearing as tolerated on her left lower extremity. She will have home PT twice a week. She will take oxycodone as needed for pain control and Colace up to 3 times a day as needed for constipation. She will follow up with Dr. Naik in approximately 1 week for incision check as a scheduled appointment. She was instructed to go to the ER should she develop chest pain or shortness of breath. Should she develop fever , increasing pain, or redness, she is to call the office immediately. GONZALO DING [id number]/[facility] #: [id number] HUANG
== END 2017-09-13 14:15 | disposition home health service (06) | DRG 470 ==
LOC: AA 09-10 05:52 → SSU 09-10 13:13
PROVIDERS: ADMIT Orthopaedic Surgery; ATTEND Orthopaedic Surgery
PROC: 0SRD0J9 Replacement of Left Knee Joint with Synthetic Substitute, Cemented, Open Approach (ICD-10-PCS; principal; 2017-09-10 07:30)
DX: M17.12 Unilateral primary osteoarthritis, left knee (principal); D62 Acute posthemorrhagic anemia; E78.00 Pure hypercholesterolemia, unspecified; G47.30 Sleep apnea, unspecified; M21.062 Valgus deformity, not elsewhere classified, left knee; I10 Essential (primary) hypertension; M25.762 Osteophyte, left knee; Z96.649 Presence of unspecified artificial hip joint; M25.462 Effusion, left knee; Z87.440 Personal history of urinary (tract) infections; Z86.718 Personal history of other venous thrombosis and embolism; Z88.5 Allergy status to narcotic agent; Z91.013 Allergy to seafood; Z91.030 Bee allergy status
CPT/HCPCS: 36415; 80048; 85014; 85018; 85049; 88305; 88311; A9270-GY; C1776; J0690; J0780; J1100; J1650; J1885; J2001; J2250; J2405; J2704; J3010

== ENCOUNTER 2021-09-29 06:00 | Observation (INO) ==
[~2021-09-29 06:00] MED LIST: Buffered Lidocaine 1% SYRIN 1 ml INTRADERM ONE; Lactated Ringers 1000 ml BAG 1,000 ML IV SCH
[2021-09-29] MEDS ORDERED: ceFAZolin 2 GM PREMIX 2 GM/50 ML BAG ONE (06:22)
[2021-09-29] MEDS ORDERED: fentaNYL 100 mcg/2 ml 50 MCG/ML VIAL ONE (06:49)
[2021-09-29] MEDS ORDERED: Lidocaine 2% PF 5 ML VIAL ONE (06:50)
[2021-09-29] MEDS ORDERED: Midazolam 2 mg/2 ml VIAL 1 mg/ml 2 ml VIAL (2 mg) ONE (06:50)
[2021-09-29] MEDS ORDERED: Ondansetron 4 mg VIAL 2 MG/ML 2 ml VIAL IV PRN ×2 (07:13→09:06)
[2021-09-29] MEDS ORDERED: HYDROmorphone 1 MG/1 ML SYRINGE IV PRN (07:13)
[2021-09-29] MEDS ORDERED: DiMENhydriNATE IV 50 mg/ml 1 ml VIAL IV PUSH PRN (07:13)
[2021-09-29] MEDS ORDERED: Naloxone 0.4 mg VIAL 0.4 mg/ml 1 ml VIAL IV PRN (07:13)
[2021-09-29] MEDS ORDERED: Rocuronium 50 mg VIAL 10 mg/ml 5 ml VIAL (50 mg) ONE ×2 (07:45→08:41)
[2021-09-29] MEDS ORDERED: Propofol 10 MG/ML 20 ML BTL ONE (08:00)
[2021-09-29] MEDS ORDERED: Dexamethasone IV 4 MG/ML VIAL 1 ml VIAL ONE ×2 (08:00)
[2021-09-29] MEDS ORDERED: Acetaminophen IV 1 GM/100ML 100 ML IV ONE (08:00)
[2021-09-29] MEDS ORDERED: Ondansetron 4 mg VIAL 2 MG/ML 2 ml VIAL ONE (08:00)
[2021-09-29] MEDS ORDERED: ROPIVACAINE 5 MG/ML 30 ML BTL (0.5%) ONE (08:08)
[2021-09-29] MEDS ORDERED: HYDROmorphone 0.5 MG/0.5 ML SYRINGE ONE (08:40)
[2021-09-29] MEDS ORDERED: fentaNYL 250 mcg/5 ml 50 MCG/ML 5 ml VIAL (250 MCG) ONE ×2 (08:50→09:14)
[2021-09-29] MEDS ORDERED: diPHENhydraMINE 25 mg TAB PO PRN (09:06)
[2021-09-29] MEDS ORDERED: Magnesium Hydroxide LIQ 30 ML UDC PO PRN (09:06)
[2021-09-29] MEDS ORDERED: diPHENhydraMINE IV 50 MG/ML 1 ml VIAL (BENADRYL) IV PRN (09:06)
[2021-09-29] MEDS ORDERED: Lactulose 30 ml UDC PO PRN (09:06)
[2021-09-29] MEDS ORDERED: Ondansetron ODT 4 mg TAB 4 MG TAB PO PRN (09:06)
[2021-09-29] MEDS ORDERED: Morphine 2 MG/ML SYRINGE IV PRN (09:06)
[2021-09-29] MEDS ORDERED: ceFAZolin 1 GM ADVAN 1 GM in NS 0.9% 50 ML 50 ML IVPB SCH (10:00)
[2021-09-29] MEDS: Lactated Ringers 1000 ml BAG 1,000 ML IV SCH ×2 (12:14→21:37)
[2021-09-29] MEDS: ceFAZolin 1 GM ADVAN 1 GM in NS 0.9% 50 ML 50 ML IVPB SCH (15:34)
[2021-09-29] MEDS ORDERED: Bupivacaine 0.5% SDV PF 30ML VIAL ONE (18:01)
[2021-09-29] MEDS ORDERED: CMCS: Simvastatin 10 mg TAB (NF) PO SCH (21:00)
[2021-09-29] MEDS: Magnesium Hydroxide LIQ 30 ML UDC PO SCH (21:27)
[2021-09-30] MEDS: ceFAZolin 1 GM ADVAN 1 GM in NS 0.9% 50 ML 50 ML IVPB SCH (00:24)
[2021-09-30] MEDS: ceFAZolin 1 GM in Dextrose 1 GM/50 ML BAG IVPB SCH ×2 (00:26→07:33)
[2021-09-30 06:47] LABS: Hematocrit 34 % (35-47); Hemoglobin 11.8 g/dL (12.0-16.0); Platelet Count 229 10^3/uL (150-450)
[2021-09-30 06:58] LABS: Calcium 8.9 mg/dL (8.6-10.3); Potassium 3.9 mmol/L (3.5-5.0); eGFR CKD-EPI 99.3 (>60)
[2021-09-30] MEDS ORDERED: Vitamin THERAPEUTIC TAB PO SCH (09:00)
[2021-09-30] MEDS: Magnesium Hydroxide LIQ 30 ML UDC PO SCH (09:14)
[2021-09-30 20:29] VITALS: BP 98/48
== END 2021-09-30 15:00 | disposition home or self-care (01) ==
LOC: OR 06:00 → SSU 06:00
PROVIDERS: ADMIT Orthopaedic Surgery Adult Reconstructive Orthopaedic Surgery; ATTEND Orthopaedic Surgery Adult Reconstructive Orthopaedic Surgery